=== PATIENT | female | born 2005 | race Caucasian/White ===

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

== ENCOUNTER 2023-01-27 11:40 | Emergency (ER) | payer MEDICAID, SELFPAY ==
[2023-01-27] VITALS (39 sets, daily range): BP systolic 59–126; BP diastolic 13–78; PULSE 54–111; RESP 10–25; TEMP 37.3; O2SAT 95–100
--- NOTE | 2023-01-27 11:30 | RT.EKG_ITS ---
APPROVED REPORT Exam: Resting ECG Reason for Exam: CHEST PAIN Patient Location: E HR:82 bpm ECG Measurements Heart Rate 82 AXIS NM 118 P 92 QRSd 85 QRS 25 QT 343 T 52 QTc 402 Conclusion Sinus rhythm.. V-rate 60- [address] segment or T wave abnormalities to suggest occluisve CO
--- NOTE | 2023-01-27 12:00 | DI.RAD_ITS ---
Exam(s) XR CHEST 2V PA LATERAL EXAM: XR CHEST 2V PA LATERAL CLINICAL HISTORY: chest pain TECHNIQUE: 2D digital imaging was performed. COMPARISON: CR,XR XR CHEST 2V PA LATERAL from 12/24/2022 FINDINGS: HEART: Normal size. Aorta: Not dilated. PULMONARY VASCULATURE: Normal. LUNGS: Clear. PLEURAL SPACE: No pleural effusion or pneumothorax. BONE:Unremarkable for age. IMPRESSION: No acute abnormality. DATA REPOSITORY: RADIATION DOSE DELIVERED:
--- NOTE | 2023-01-27 12:05 | ED.GENADUL_ITS ---
Discharge Plan Disposition Patient Disposition: Home Condition: Good Discharge Details Clinical Impression: Chest pain Primary Care Provider: Jerry Munoz ED Provider: Claudia Falcon Home Meds and New Rx's Prescriptions: No Action naproxen sodium 550 mg tablet 550 mg PO Q12H PRN (Reason: pain) Qty: 20 0RF levonorgestrel-ethinyl estrad [Aviane] 0.1-20 mg-mcg tablet 1 tab PO DAILY Qty: 84 4RF clindamycin phosphate 1 % gel 1 applic topical DAILY Qty: 60 2RF Rx Instructions: Apply daily tretinoin 0.025 % cream 1 applic topical QHS Qty: 20 1RF Rx Instructions: Apply nightly benzoyl peroxide [BP Wash] 5 % cleanser 1 applic topical DAILY Qty: 237 2RF Rx Instructions: Apply daily to affected areas and rinse off Discharge Instructions Instructions: Chest Pain (ED) Additional Instructions: You can take tylenol and ibuprofen over the counter at home for your pain; follow the directions on the bottle. Call your primary care doctor today to schedule an appointment to follow up on your visit here. Discuss your magnesium level at that visit. Return to the emergency department for new or worsening symptoms including new/different/worse chest pain, difficulty breathing, or if you have any other concerns. Referrals: Jerry Munoz, [facility] [facility] [facility] [Primary Care Provider] - Medical Decision Making 17yo previously health female presenting with 4 hours of constant substernal chest pain with no associated symptoms; did have N/V over the past two days which resolved yesterday evening. Vital signs and physical exam reassuring on arrival. Suspect likely reflux in the setting of recent vomiting, however given OCPs and concerning family history will further evaluate for pulmonary embolism and acute coronary syndrome. Given mylanta for symptoms. EKG NSR, appropraite intervals, no ST segment or T wave abnormalities to suggest occlusive PR. CXR independently reviewed, no pneumonia, pneumothorax, or indication Boerhaves, agree with radiology read below. Labs reviewed; CBC & CMP reassuring with no actionable abnormalities, lipase normal, Mg borderline low at 1.7 (orally replaced), d-dimer negative, troponin negative x 2. On reassessment remains nontoxic appearing with reassuring vital signs, minimal improvement with mylanta. Does have reproducible chest wall tenderness with palpation. Given IV toradol and discharged home to followup with PCP (advised to discuss Mg level at that visit); discharge instructions and return precautions were reviewed with patient who verbalized understanding. All questions were answered and she is in full agreement with the plan. Imaging Data Radiologic Study: Imaging: X-Ray Radiologist's impression: IMPRESSION: No acute findings Lab Data Lab results reviewed: Yes I reviewed the patient's lab results. Labs: Laboratory Tests Range/Units 01/27/23 01/27/23 01/27/23 11:50 11:50 11:50 WBC (4.4-10.8) 10^3/uL 7.23 RBC (3.93-5.22) 10^6/uL 4.31 Hgb (11.2-15.7) g/dL 13.1 Hct (36.0-46.0) % 37.0 MCV (80-95) fL 86 MCH (27.0-33.0) pg 30.4 MCHC (32.0-36.0) % 35.4 RDW (11.7-14.6) % 11.1 L Plt Count (130-400) 10^3/uL 212 MPV (8.0-11.0) fL 11.4 H Immature Gran % 0.3 Neutrophils % 62.2 Lymphocytes % 28.2 Monocytes % 7.3 Eosinophils % 1.4 Basophils % 0.6 Nucleated RBC % (0.0-0.3) % 0.0 Absolute Neutrophils (1.2-6.7) 10^3/uL 4.50 Absolute Lymphocytes (1.2-3.4) 10^3/uL 2.04 Absolute Monocytes (0.1-0.8) 10^3/uL 0.53 Absolute Eosinophils (0.0-0.7) 10^3/uL 0.10 Absolute Basophils (0.0-0.2) 10^3/uL 0.04 D-Dimer (<500) ng/mlFEU 272 Sodium (136-145) mmol/L 139 Potassium (3.5-5.1) mmol/L 3.6 Chloride (98-107) mmol/L 104 Carbon Dioxide (21.0-32.0) mmol/L 25.5 Anion Gap (3-11) mmol/L 9.5 BUN (7-18) mg/dL 7 Creatinine (0.55-1.02) mg/dL 0.7 Est GFR (CKD-EPI 2020) (mL/min/1.73m2) 127.69 Glucose (74-106) mg/dL 86 Calcium (8.5-10.1) mg/dL 8.7 Magnesium (1.8-2.4) mg/dL 1.7 L Total Bilirubin (0.2-1.0) mg/dL 0.5 AST (15-37) U/L 17 ALT (14-59) U/L 22 Alkaline Phosphatase (46-116) U/L 70 Troponin I (<or=60) ng/L < 50 Total Protein (6.4-8.2) g/dL 7.0 Albumin (3.4-5.0) g/dL 3.7 Lipase (16-77) U/L 52 Range/Units 01/27/23 14:50 WBC (4.4-10.8) 10^3/uL RBC (3.93-5.22) 10^6/uL Hgb (11.2-15.7) g/dL Hct (36.0-46.0) % MCV (80-95) fL MCH (27.0-33.0) pg MCHC (32.0-36.0) % RDW (11.7-14.6) % Plt Count (130-400) 10^3/uL MPV (8.0-11.0) fL Immature Gran % Neutrophils % Lymphocytes % Monocytes % Eosinophils % Basophils % Nucleated RBC % (0.0-0.3) % Absolute Neutrophils (1.2-6.7) 10^3/uL Absolute Lymphocytes (1.2-3.4) 10^3/uL Absolute Monocytes (0.1-0.8) 10^3/uL Absolute Eosinophils (0.0-0.7) 10^3/uL Absolute Basophils (0.0-0.2) 10^3/uL D-Dimer (<500) ng/mlFEU Sodium (136-145) mmol/L Potassium (3.5-5.1) mmol/L Chloride (98-107) mmol/L Carbon Dioxide (21.0-32.0) mmol/L Anion Gap (3-11) mmol/L BUN (7-18) mg/dL Creatinine (0.55-1.02) mg/dL Est GFR (CKD-EPI 2020) (mL/min/1.73m2) Glucose (74-106) mg/dL Calcium (8.5-10.1) mg/dL Magnesium (1.8-2.4) mg/dL Total Bilirubin (0.2-1.0) mg/dL AST (15-37) U/L ALT (14-59) U/L Alkaline Phosphatase (46-116) U/L Troponin I (<or=60) ng/L < 50 Total Protein (6.4-8.2) g/dL Albumin (3.4-5.0) g/dL Lipase (16-77) U/L HPI General Mode of arrival: ambulatory . Date/Time Provider Initiated Documentation: 01/27/23 11:46 . Limitations to Documentation: no limitations . Information obtained by: patient . HPI Narrative: 17yo previously health female presenting with 4 hours of constant substernal nonradiating chest pain. Present on waking at 0700 this morning when her alarm went off. No shortness of breath or pleuritic pain. For the last two days she has had nausea and vomiting, nonbloody nonbilious, resolved yesterday evening. No abdominal pain. On OCPs, no other medications. Father at age 52 of a heart attack. She is otherwise in her usual state of health with no fevers, chills, rash, dysuria, hematuria, LE edema, palpitations, presyncope, syncope, or other concerns. Related Data Home Medications Medication Instructions Recorded Confirmed benzoyl peroxide 5 % topical 1 applic topical DAILY #237 grams 05/04/22 01/27/23 cleanser (BP Wash) clindamycin phosphate 1 % topical 1 applic topical DAILY #60 grams 05/04/22 01/27/23 gel levonorgestrel-ethinyl estradiol 1 tab PO DAILY #84 tabs 05/04/22 01/27/23 0.1 mg-20 mcg tablet (Aviane) tretinoin 0.025 % topical cream 1 applic topical QHS #20 grams 05/04/22 01/27/23 naproxen sodium 550 mg tablet 550 mg PO Q12H PRN pain #20 tabs 01/11/23 01/27/23 Previous Rx's Medication Instructions Recorded benzoyl peroxide 5 % topical 1 applic topical DAILY #237 grams 05/04/22 cleanser (BP Wash) clindamycin phosphate 1 % topical 1 applic topical DAILY #60 grams 05/04/22 gel levonorgestrel-ethinyl estradiol 1 tab PO DAILY #84 tabs 05/04/22 0.1 mg-20 mcg tablet (Aviane) tretinoin 0.025 % topical cream 1 applic topical QHS #20 grams 05/04/22 naproxen sodium 550 mg tablet 550 mg PO Q12H PRN pain #20 tabs 01/11/23 Allergies Allergy/AdvReac Type Severity Reaction Status Date / Time aloe Allergy Unknown Skin Rash Verified 01/11/23 13:37 codeine AdvReac Intermediate Agitation Verified 01/11/23 13:37 General Stated Complaint: Chest Pain LAN: 3 Review of Systems Narrative: see HPI PFSH All Active Problems (Updated 01/27/23 @ 15:59 by Claudia Falcon MD) Chest pain (Acute) Frequent urinary tract infections (Acute) GERD (gastroesophageal reflux disease) (Chronic) H. pylori infection (Acute) Abdominal pain (Acute) GI consult: pending upper and lower GI series. trial of cyproheptadine Hypomagnesemia (Acute) Anxiety (Chronic) Insomnia (Acute) Family history of multiple endocrine neoplasia (MEN) syndrome (Acute 08/09/16) Medical History (Updated 01/27/23 @ 15:59 by Claudia Falcon MD) Abnormal uterine bleeding (AUB) Cellulitis of left upper extremity Dysuria History of seizure as Leg pain Lower abdominal pain Pain of left calf Family History Mother Mental disorder bipolar Depression suicide attempts Father Essential hypertension Ulcer Multiple endocrine neoplasia (MEN) syndrome Sister No problems noted. Brother No problems noted. Grandparent Heart disease Mgm and Mgf with heart problems Neoplasm Other Substance abuse Social History Smoking/Tobacco Use Status: Former Tobacco Use Smoking risk assessment performed?: Yes Alcohol Intake: never Drug use: Never Substance use type: does not use Housing: apartment Pets and animals: Yes Pets and animals: cat(s) Do you feel safe at home: Yes Do you feel safe in your relationship?: Yes Additional Social history: mom at bedside. Female Reproductive History Menstrual control method: none, pills (Aviane - sexually active with one partner - reports consistent condom use.) and condoms History History 0 Para Hx # Term Pregnancies Multiple births Hx # Pregnancies Ectopic pregnancies AB induced Hx Number of Living Children AB spontaneous Exam Narrative Exam Narrative: General: Alert, well appearing, well nourished, in no acute distress. Head: Normocephalic, atraumatic Neck: Trachea midline, Neck supple. ENT: MMM. No oropharygeal lesions or exudate. Cardiac: RRR, no murmurs appreciated Resp: No respiratory distress. CTAB. Abd: Soft, non-distended, nontender : No suprapubic tenderness. No CVA tenderness. Extremities: No deformities. No peripheral edema. Neurologic: GCS 15. Moves all extremities freely against gravity Course Vital Signs Vital signs: Vital Signs Temperature 37.3 C 01/27/23 11:43 Pulse 92 H 01/27/23 11:43 Respiratory Rate 18 01/27/23 11:43 Blood Pressure 116/67 01/27/23 11:43 Pulse Oximetry 100 01/27/23 11:43 Temperature 37.3 C 01/27/23 11:43 Temperature Source Oral 01/27/23 11:43 Pulse 92 H 01/27/23 11:43 Respiratory Rate 18 01/27/23 11:43 Respiratory Effort Normal 01/27/23 11:51 Respiratory Depth Normal 01/27/23 11:51 Respiratory Pattern Normal 01/27/23 11:51 Blood Pressure 116/67 01/27/23 11:43 Blood Pressure Position Sitting 01/27/23 11:43 Pulse Oximetry 100 01/27/23 11:43 Oxygen Delivery Method Room Air 01/27/23 11:43 Oxygen Flow Rate 0 01/27/23 11:43 Pain Level 7 01/27/23 11:43
[2023-01-27 12:12] LABS: Abs Immature Grans 0.02 10^3/uL (0.0-0.06); Absolute Basophil Count 0.04 10^3/uL (0.0-0.2); Absolute Lymphocyte Count 2.04 10^3/uL (1.2-3.4); Absolute Monocyte Count 0.53 10^3/uL (0.1-0.8); Basophils % 0.6; Eosinophils % 1.4; HGB 13.1 g/dL (11.2-15.7); Immature Grans % 0.3; Lymphocytes % 28.2; MCH 30.4 pg (27.0-33.0); MCHC 35.4 % (32.0-36.0); MCV 86 fL (80-95); MPV 11.4 fL (8.0-11.0); Monocytes % 7.3; Neutrophils % 62.2; Platelet Count 212 10^3/uL (130-400); RBC 4.31 10^6/uL (3.93-5.22); RDW 11.1 % (11.7-14.6); WBC 7.23 10^3/uL (4.4-10.8)
[2023-01-27] MEDS: Mylanta Suspension 30 ML CUP PO (12:16)
[2023-01-27 12:24] LABS: ALT 22 U/L (14-59); AST 17 U/L (15-37); Albumin 3.7 g/dL (3.4-5.0); Alkaline Phosphatase 70 U/L (46-116); Anion Gap 9.5 mmol/L (3-11); BUN 7 mg/dL (7-18); Bilirubin, Total 0.5 mg/dL (0.2-1.0); CO2 25.5 mmol/L (21.0-32.0); CREATININE 0.7 mg/dL (0.55-1.02); Calcium 8.7 mg/dL (8.5-10.1); Chloride 104 mmol/L (98-107); Estimated GFR 127.69 (mL/min/1.73m2); Glucose 86 mg/dL (74-106); Lipase 52 U/L (16-77); Magnesium 1.7 mg/dL (1.8-2.4); Potassium 3.6 mmol/L (3.5-5.1); Sodium 139 mmol/L (136-145); Troponin I < 50 ng/L (<or=60)
[2023-01-27 12:42] LABS: D-Dimer 272 ng/mlFEU (<500)
[2023-01-27] MEDS: Magnesium Gluconate 500 MG TAB PO (13:29)
[2023-01-27 15:16] LABS: Troponin I < 50 ng/L (<or=60)
--- NOTE | 2023-01-27 15:28 | DI.VRAD_ITS ---
PROCEDURE INFORMATION: Exam: XR Chest Exam date and time: 01/27/2023 3:08 PM Age: 17 years old Clinical indication: Other: Chest pain TECHNIQUE: Imaging protocol: Radiologic exam of the chest. Views: 2 views. COMPARISON: CR XR CHEST 2V PA LATERAL 12/24/2022 1:05 AM FINDINGS: Lungs: Unremarkable. No consolidation. Pleural spaces: Unremarkable. No pleural effusion. No pneumothorax. Heart/Mediastinum: Unremarkable. No cardiomegaly. Bones/joints: Unremarkable. IMPRESSION: No acute findings. Dictated and Authenticated by: Tonny Almeida MD. Ordering:MONTEZ Taylor MD
[2023-01-27] MEDS: Ketorolac 15 MG/ML VIAL IVP (16:19)
--- NOTE | 2023-01-30 09:45 | NUR.NOTE ---
Nursing Note:in chart because she wanted a return to work note
== END 2023-01-27 16:34 | disposition home or self-care (01) ==
PROVIDERS: Emergency Provider Student in an Organized Health Care Education/Training Program; PCP Nurse Practitioner Pediatrics
DX: R07.9 Chest pain, unspecified (principal); Z87.891 Personal history of nicotine dependence
CPT/HCPCS: 80053; 83690; 93005; 99284; 71046; 83735; 84484; 85025; 85379; 93010; 99283; J1885

== ENCOUNTER 2023-02-18 20:35 | Emergency (ER) | payer MEDICAID, SELFPAY ==
--- NOTE | 2023-02-18 20:30 | DI.RAD_ITS ---
Exam(s) XR HAND LT COMPLETE EXAM: XR HAND LT COMPLETE CLINICAL HISTORY: trauma. TECHNIQUE: 2D digital imaging was performed. Three views. COMPARISON: CR XR HAND LT COMPLETE from 04/27/2022 FINDINGS: BONES: No acute fracture is present. No bony destructive lesion is seen. JOINTS: No dislocation present. SOFT TISSUE: Normal. IMPRESSION: Unremarkable radiographs of the left hand. DATA REPOSITORY: RADIATION DOSE DELIVERED:
--- NOTE | 2023-02-18 20:45 | ED.GENADUL_ITS ---
Discharge Plan Disposition Patient Disposition: Home Condition: Stable Discharge Details Clinical Impression: Contusion of hand Primary Care Provider: Jerry Munoz ED Provider: Fozia Nunez Home Meds and New Rx's Prescriptions: Continued naproxen sodium 550 mg tablet 550 mg PO Q12H PRN (Reason: pain) Qty: 20 0RF levonorgestrel-ethinyl estrad [Aviane] 0.1-20 mg-mcg tablet 1 tab PO DAILY Qty: 84 4RF clindamycin phosphate 1 % gel 1 applic topical DAILY Qty: 60 2RF Patient Comments: not currently using Rx Instructions: Apply daily tretinoin 0.025 % cream 1 applic topical QHS Qty: 20 1RF Patient Comments: not currently using Rx Instructions: Apply nightly benzoyl peroxide [BP Wash] 5 % cleanser 1 applic topical DAILY Qty: 237 2RF Patient Comments: not currently using Rx Instructions: Apply daily to affected areas and rinse off Discharge Instructions Instructions: Contusion in Adults (ED) Additional Instructions: Elevate above the level of your heart to reduce swelling and throbbing You can wrap your hand with an Santiago wrap to help reduce swelling and provide support Ice to affected area 4-5 times daily for the next 2 days then can use heat or ice Use ibuprofen 400 mg 4 times daily with food for 5 days to help reduce swelling then as needed for pain can add acetaminophen 650 mg 4 times daily in between for breakthrough Your symptoms may worsen over the next 2 to 3 days but then should start slowly improving if they are not improving by 5 to 7 days please see a provider and follow-up Referrals: Jerry Munoz, [employer] [Primary Care Provider] - Medical Decision Making Isolated injury to left hand. Ice provided ibuprofen 400 mg orally given x-ray will be obtained HPI General Mode of arrival: ambulatory . Date/Time Provider Initiated Documentation: 02/18/23 20:43 . Limitations to Documentation: no limitations . Information obtained by: patient . HPI Narrative: Patient presents for evaluation of left hand pain following an injury she sustained by slamming into a car door. There was no other injury. There is no obvious deformity. No laceration or abrasion Related Data Home Medications Medication Instructions Recorded Confirmed benzoyl peroxide 5 % topical 1 applic topical DAILY #237 grams 05/04/22 01/27/23 cleanser (BP Wash) clindamycin phosphate 1 % topical 1 applic topical DAILY #60 grams 05/04/22 0 01/27/23 gel levonorgestrel-ethinyl estradiol 1 tab PO DAILY #84 tabs 05/04/22 02/18/23 0.1 mg-20 mcg tablet (Aviane) tretinoin 0.025 % topical cream 1 applic topical QHS #20 grams 05/04/22 01/27/23 naproxen sodium 550 mg tablet 550 mg PO Q12H PRN pain #20 tabs 01/11/23 02/18/23 Previous Rx's Medication Instructions Recorded benzoyl peroxide 5 % topical 1 applic topical DAILY #237 grams 05/04/22 cleanser (BP Wash) clindamycin phosphate 1 % topical 1 applic topical DAILY #60 grams 05/04/22 gel levonorgestrel-ethinyl estradiol 1 tab PO DAILY #84 tabs 05/04/22 0.1 mg-20 mcg tablet (Aviane) tretinoin 0.025 % topical cream 1 applic topical QHS #20 grams 05/04/22 naproxen sodium 550 mg tablet 550 mg PO Q12H PRN pain #20 tabs 01/11/23 Allergies Allergy/AdvReac Type Severity Reaction Status Date / Time aloe Allergy Unknown Skin Rash Verified 02/18/23 21:11 codeine AdvReac Intermediate Agitation Verified 02/18/23 21:11 General LAN: 3 Review of Systems All systems reviewed & are unremarkable except as noted in HPI and below PFSH All Active Problems (Updated 02/18/23 @ 21:24 by Fozia Nunez NP) Chest pain (Acute) Contusion of hand (Acute) Frequent urinary tract infections (Acute) GERD (gastroesophageal reflux disease) (Chronic) H. pylori infection (Acute) Abdominal pain (Acute) GI consult: pending upper and lower GI series. trial of cyproheptadine Hypomagnesemia (Acute) Anxiety (Chronic) Insomnia (Acute) Family history of multiple endocrine neoplasia (MEN) syndrome (Acute 08/09/16) Medical History (Updated 02/18/23 @ 21:24 by Fozia Nunez NP) Abnormal uterine bleeding (AUB) Cellulitis of left upper extremity Dysuria History of seizure as Leg pain Lower abdominal pain Pain of left calf Family History Mother Mental disorder bipolar Depression suicide attempts Father Essential hypertension Ulcer Multiple endocrine neoplasia (MEN) syndrome Sister No problems noted. Brother No problems noted. Grandparent Heart disease Mgm and Mgf with heart problems Neoplasm Other Substance abuse Social History Smoking/Tobacco Use Status: Former Tobacco Use Smoking risk assessment performed?: Yes Alcohol Intake: never Drug use: Never Substance use type: does not use Housing: apartment Pets and animals: Yes Pets and animals: cat(s) Do you feel safe at home: Yes Do you feel safe in your relationship?: Yes Additional Social history: mom at bedside. Female Reproductive History Menstrual control method: none, pills (Aviane - sexually active with one partner - reports consistent condom use.) and condoms History History 0 Para Hx # Term Pregnancies Multiple births Hx # Pregnancies Ectopic pregnancies AB induced Hx Number of Living Children AB spontaneous Exam Const General: cooperative, healthy appearing, comfortable and acute distress mild Nutritional Appearance: thin HENMT Head: normal to inspection, normocephalic and atraumatic Chest Chest: normal inspection of the chest Resp Effort & Inspection: normal respiratory effort Cardio Rate: regular rate Rhythm: regular rhythm Extrem Right upper extremity: hand Details: tenderness and swelling; no abrasions, no lacerations and no ecchymosis Psych Appearance: well kempt Mental Status: mental status grossly normal Speech and Movement: speech and movement normal Mood: congruent mood Affect: normal affect Attitude: cooperative Thought Process: normal
[2023-02-18 21:04] VITALS: BP 115/74; PULSE 88; RESP 14; TEMP 37.2; O2SAT 98
[2023-02-18] MEDS: Ibuprofen 400 MG TAB PO (21:10)
--- NOTE | 2023-02-18 21:19 | DI.VRAD_ITS ---
PROCEDURE INFORMATION: Exam: XR Left Hand Exam date and time: 02/18/2023 9:11 PM Age: 17 years old Clinical indication: Injury or trauma; Other: Hand shut in door; Blunt trauma (contusions or hematomas); Left TECHNIQUE: Imaging protocol: Radiologic exam of the left hand. Views: 3 or more views. COMPARISON: CR XR HAND LT COMPLETE 04/27/2022 1:30 PM FINDINGS: Bones/joints: Bone mineralization is age-appropriate. There is no evidence of fracture. No evidence of dislocation. The joint spaces are adequately preserved; no significant degenerative narrowing and no bony erosion seen. Soft tissues: No radiopaque foreign body present. There is mild soft tissue swelling present. IMPRESSION: 1. No acute osseous abnormality. 2. There is mild soft tissue swelling present. Dictated and Authenticated by: Geoff Chauhan MD. Ordering:NATHAN Marcelo MD
[2023-02-18 21:38] VITALS: BP 112/70; PULSE 84; RESP 14; O2SAT 98
== END 2023-02-18 21:40 | disposition home or self-care (01) ==
PROVIDERS: Emergency Provider Nurse Practitioner Acute Care; PCP Nurse Practitioner Pediatrics
DX: W23.0XXA Caught, crushed, jammed, or pinched between moving objects, initial encounter; S60.221A Contusion of right hand, initial encounter
CPT/HCPCS: 99282; 73130; 99283

== ENCOUNTER 2023-04-13 21:32 | Outpatient (REF) | payer MEDICAID, SELFPAY | END 2023-04-13 21:33 | disposition home or self-care (01) | LOC: LBN 21:32 | PROVIDERS: PCP Nurse Practitioner Pediatrics; Visit Provider Physician Assistant | DX: J02.9 Acute pharyngitis, unspecified (principal) | CPT/HCPCS: 87070 ==

== ENCOUNTER 2023-07-05 06:47 | Emergency (ER) | payer MEDICAID, SELFPAY ==
--- NOTE | 2023-07-05 | DI.RAD_ITS ---
Exam(s) XR CHEST 2V PA LATERAL EXAM: XR CHEST 2V PA LATERAL CLINICAL HISTORY: sob. TECHNIQUE: 2D digital imaging was performed. COMPARISON: CR,XR XR CHEST 2V PA LATERAL from 01/27/2023 FINDINGS: 2 views: Heart size is normal. The mediastinum is not widened. Lungs are clear. No infiltrates nor pleural effusions. IMPRESSION: No acute pulmonary findings. DATA REPOSITORY: RADIATION DOSE DELIVERED:
--- NOTE | 2023-07-05 09:00 | RT.EKG_ITS ---
APPROVED REPORT Exam: Resting ECG Reason for Exam: SOB Patient Location: E HR:66 bpm ECG Measurements Heart Rate 66 AXIS NH 144 P 49 QRSd 88 QRS 57 QT 381 T 53 QTc 399 Conclusion Age and gender not entered, assume 48 yo male for purpose of ECG interpretation Sinus rhythm...normal P axis, V-rate 60- 99
[2023-07-05] MEDS: Lidocaine 5% Patch 1 PATCH TP (09:04)
[2023-07-05 11:11] LABS: Anion Gap 6.3 mmol/L (3-11); BUN 7 mg/dL (7-18); CO2 25.7 mmol/L (21.0-32.0); CREATININE 0.6 mg/dL (0.55-1.02); Calcium 8.9 mg/dL (8.5-10.1); Chloride 108 mmol/L (98-107); Glucose 93 mg/dL (74-106); Lipase 53 U/L (16-77); Magnesium 1.9 mg/dL (1.8-2.4); Potassium 3.7 mmol/L (3.5-5.1); Sodium 140 mmol/L (136-145); Troponin I < 50 ng/L (< or =60)
[2023-07-05 11:13] LABS: D-Dimer 187 ng/mlFEU (<500)
[2023-07-05 11:14] LABS: Absolute Basophil Count 0.03 10^3/uL (0.0-0.2); Absolute Eosinophil Count 0.21 10^3/uL (0.0-0.7); Absolute Lymphocyte Count 1.68 10^3/uL (1.2-3.4); Absolute Monocyte Count 0.44 10^3/uL (0.1-0.8); Absolute Neutrophil Count 3.53 10^3/uL (1.2-6.7); Basophils % 0.5; Eosinophils % 3.6; HCT 36.4 % (36.0-46.0); HGB 12.9 g/dL (11.2-15.7); Immature Grans % 0.2; Lymphocytes % 28.5; MCH 30.8 pg (27.0-33.0); MCHC 35.4 % (32.0-36.0); MCV 87 fL (80-95); MPV 11.2 fL (8.0-11.0); Monocytes % 7.5; Neutrophils % 59.7; Platelet Count 222 10^3/uL (130-400); RBC 4.19 10^6/uL (3.93-5.22); RDW 11.4 % (11.7-14.6)
[2023-07-05 11:15] LABS: Abs Immature Grans 0.01 10^3/uL (0.0-0.06)
== END 2023-07-05 09:09 | disposition home or self-care (01) ==
PROVIDERS: Emergency Provider Emergency Medicine; PCP Nurse Practitioner Pediatrics
DX: R07.9 Chest pain, unspecified (principal); F17.290 Nicotine dependence, other tobacco product, uncomplicated
CPT/HCPCS: 80048; 83690; 93005; 99285; 71046; 83735; 84484; 85025; 85379; 93010; 99284

== ENCOUNTER 2023-07-21 18:20 | Emergency (ER) | payer MEDICAID, SELFPAY ==
[2023-07-21 18:33] VITALS: BP 124/97; PULSE 121; RESP 18; TEMP 37.1; O2SAT 97
[2023-07-21 18:53] LABS: Bilirubin Negative (Negative); Blood Negative (Negative); Clarity Clear (Clear); Glucose Negative (Negative); Ketones Negative (Negative); Leukocyte Esterase Negative (Negative); Nitrite Negative (Negative); Urobilinogen 0.2 mg/dL (Up to 0.2)
--- NOTE | 2023-07-21 18:53 | W.ED.GENAD ---
HPI General Date/Time Provider Initiated Documentation: 07/21/23 18:21. HPI Narrative: MDM This is an uncomfortable appearing tachycardic but normothermic and normotensive 18-year-old female with mild left-sided hydronephrosis concerning for the possibility of ureterolithiasis for which she will undergo dry CT scan. Certainly given flank pain and urinary symptoms she certainly could have pyelonephritis. No diarrhea to suggest diverticulitis. Based on mild hydronephrosis my suspicion for ovarian torsion is lower so we will defer pelvic ultrasound at this point. No pain out of proportion to suggest necrotizing soft tissue infection. No right lower quadrant tenderness to suggest appendicitis. No dysuria nor frequency so my suspicion is lower for urinary tract infection however given reportedly turbid and malodorous urine UTI remains in the differential. Patient the patient's age and lack of vascular risk factors my suspicion for ruptured AAA is low. No cough so doubt referred pain from pneumonia. Not short of breath to suggest PE. No falls to suggest splenic rupture. Not recently to suggest increased risk for splenic arterial aneurysm. Given no abnormal vaginal discharge my suspicion for sexually transmitted infection is low. Will treat pain with ketorolac and nausea with ondansetron. 7:01 PM [id number] urine negative. Urinalysis nitrite leukoesterase negative not consistent with UTI. 7:56 PM CBC lacks anemia thrombocytopenia and leukocytosis. Comprehensive metabolic panel with no NAINA no acute electrolyte abnormalities. 8:38 PM No obvious ureterolithiasis on my preliminary interpretation given concern for pyelonephritis will treat with 1 g of ceftriaxone in the emergency department and discharged on cefpodoxime 200 mg twice daily for 10 days. 9:42 PM Patient has been accepted by Dr. Womack [place] [facility] [place] Fortunately emergency department nurse Guadalupe, who is also an hazardous waste material technician, will be able to perform the patient's ultrasound locally in 20 minutes which is certainly more expeditious than [place] [facility] [place] As result we will the patient in the emergency department to maintain IV access. Pain is improved. 10:22 PM I spoke with hazardous waste material technician MRI who reported that the patient had no signs of ovarian torsion with good flow to bilateral ovaries. She did note that she found a moderate amount of free fluid which certainly could speak to a recently ruptured ovarian cyst but the patient had no large cysts. Will await radiology final read. 11:08 PM Formal radiology preliminary read of patient's ultrasound showed blood flow to ovaries bilaterally moderate amount of free fluid. There is a right ovarian cyst for which radiology advises outpatient follow-up in 6 weeks. Will advise patient of this incidental finding and discharged with strict return indications. Chronic conditions affecting the care of the patient: N/A History obtained from an outside historian: Patient's mother External record review: N/A Medications: Ketorolac ondansetron Social determinants of health affecting disposition: N/A Management discussed with: Emergency medicine [place] [facility] [place] Treatment/interventions considered: Tertiary care transfer for ultrasound but deferred Response to therapies provided: Improved pain following ketorolac HPI This is a previously healthy 18-year-old female up-to-date on immunizations and on only oral outpatient contraceptives arriving to the emergency department via private vehicle with her mother in the setting of left flank pain and cloudy urine which began this morning acutely at 11 AM. She says that she has pain in her left lower quadrant that radiates into her left flank. She has never had similar symptoms in the past. She has had difficulty urinating and notes a cloudy malodorous urine. She reports her symptoms feel different from prior episodes of urinary tract infections. She had no abnormal vaginal discharge. She denies fevers although she does feel sweaty. She took some acetaminophen this morning which did not improve her symptoms. She has not taken any falls.Patient denied abnormal vaginal discharge to me although she did complain of vaginal discharge from triage. She is sexually active but uses oral contraceptives and condoms. She has never had a sexually transmitted infection. Exam General: Uncomfortable-appearing in no acute distress speaking in complete sentences. Head: Normocephalic, atraumatic. Eye: Extraocular eye movements intact. No conjunctival injection. No scleral icterus. Ear, nose, mouth, throat: Grossly normal inspection. Normal voice, handling secretions normally. Neck: Trachea midline. Cardiovascular: Well-perfused distal extremities. Regular rate and rhythm Respiratory: Nonlabored respiration. Clear lungs bilaterally Gastrointestinal: Nondistended abdomen. Soft nontender no rebound no guarding. Musculoskeletal: No edema. Moving all 4 extremities spontaneously. Skin: Normal for age and race, grossly normal temperature and turgor. No acute rash. Neurologic: Alert and appropriate, no apparent acute deficits. Psychiatric: Mood and manner are appropriate. Grooming and personal hygiene are appropriate. Related Data Home Medications Medication Instructions Recorded Confirmed levonorgestrel-ethinyl estradiol 1 tab PO DAILY #84 tabs 05/04/22 07/21/23 0.1 mg-20 mcg tablet (Aviane) cefpodoxime 200 mg tablet 200 mg PO Q12H #20 tabs 07/21/23 ondansetron 4 mg disintegrating 4 mg PO BID 5 days #10 tabs 07/21/23 tablet Previous Rx's Medication Instructions Recorded levonorgestrel-ethinyl estradiol 1 tab PO DAILY #84 tabs 05/04/22 0.1 mg-20 mcg tablet (Aviane) cefpodoxime 200 mg tablet 200 mg PO Q12H #20 tabs 07/21/23 ondansetron 4 mg disintegrating 4 mg PO BID 5 days #10 tabs 07/21/23 tablet Allergies Allergy/AdvReac Type Severity Reaction Status Date / Time aloe Allergy Unknown Skin Rash Verified 07/21/23 18:33 codeine AdvReac Intermediate Agitation Verified 07/21/23 18:33 General Stated Complaint: Abd Prob LAN: 3 Course Vital Signs Vital signs: Vital Signs Temperature 37.1 C 07/21/23 18:33 Pulse 121 H 07/21/23 18:33 Respiratory Rate 18 07/21/23 18:33 Blood Pressure 124/97 H 07/21/23 18:33 Pulse Oximetry 97 07/21/23 18:33 Temperature 37.1 C 07/21/23 18:33 Temperature Source Skin 07/21/23 18:33 Pulse 121 H 07/21/23 18:33 Respiratory Rate 18 07/21/23 18:33 Respiratory Effort Normal, Non-Labored 07/21/23 18:36 Blood Pressure 124/97 H 07/21/23 18:33 Pulse Oximetry 97 07/21/23 18:33 Pain Level 6 07/21/23 18:33 Lab/Test Results Lab/Test Results: POC- Test(urine) Negative Medical Decision Making Quality:SDOH Health Related Social Needs: No Data to Display PFSH All Active Problems (Updated 07/21/23 @ 23:10 by Rasheed Jackson MD) Cyst of right ovary (Acute) Free fluid in pelvis (Acute) Pyelonephritis (Acute) Chest pain (Acute) Frequent urinary tract infections (Acute) GERD (gastroesophageal reflux disease) (Chronic) H. pylori infection (Acute) Abdominal pain (Acute) GI consult: pending upper and lower GI series. trial of cyproheptadine Hypomagnesemia (Acute) Anxiety (Chronic) Insomnia (Acute) Family history of multiple endocrine neoplasia (MEN) syndrome (Acute 08/09/16) Medical History Pain of left calf Leg pain Lower abdominal pain Dysuria Abnormal uterine bleeding (AUB) Cellulitis of left upper extremity History of seizure as Family History Mother Mental disorder bipolar Depression suicide attempts Father Essential hypertension Ulcer Multiple endocrine neoplasia (MEN) syndrome Sister No problems noted. Brother No problems noted. Grandparent Heart disease Mgm and Mgf with heart problems Neoplasm Other Substance abuse Social History Smoking/Tobacco Use Status: Former Tobacco Use Smoking risk assessment performed?: Yes Alcohol Intake: never Drug use: Never Substance use type: does not use Housing: apartment Pets and animals: Yes Pets and animals: cat(s) Do you feel safe at home: Yes Do you feel safe in your relationship?: Yes Additional Social history: mom at bedside. Female Reproductive History Menstrual control method: none, pills (Aviane - sexually active with one partner - reports consistent condom use.) and condoms History History 0 Para Hx # Term Pregnancies Multiple births Hx # Pregnancies Ectopic pregnancies AB induced Hx Number of Living Children AB spontaneous Discharge Plan Disposition Patient Disposition: Home Discharge Details Clinical Impression: Pyelonephritis, Free fluid in pelvis, Cyst of right ovary Primary Care Provider: Jerry Munoz ED Provider: Rasheed Jackson Brule Meds and New Rx's Prescriptions: New cefpodoxime 200 mg tablet 200 mg PO Q12H Qty: 20 0RF Rx Instructions: must administer with a meal/food ondansetron 4 mg tablet,disintegrating 4 mg PO BID 5 Days Qty: 10 0RF Continued levonorgestrel-ethinyl estrad [Aviane] 0.1-20 mg-mcg tablet 1 tab PO DAILY Qty: 84 4RF Discharge Instructions Instructions: Urinary Tract Infection in Women (ED) Additional Instructions: You are seen in the emergency department for your flank pain. Your history and physical was consistent with a urinary tract infection for which you are receiving antibiotics which you should take as directed starting on 07/22/2023. You are also receiving a prescription for nausea medicines which you should take as needed. Your CAT scan showed concerns for the possibility of some free fluid in your lower abdomen along with an abnormal displacement of your uterus. Your ultrasound showed no sign of ovarian torsion however you did have a small cyst on your right ovary for which radiology recommended a repeat ultrasound in the next 6 weeks. Please return to the emergency department if you cannot eat or drink as result of nausea or vomiting or if you have any other concerns. Otherwise please follow-up with your primary care provider next week. For your pain please take medications as follows: 1. Take acetaminophen (Tylenol), 1,000 mg (two 500 mg tabs) every 6 hours [2. Take ibuprofen (Advil), 400 mg every 6 hours.] POCUS Exam (ED) Limited Retroperitoneal(Renal)Exam DATE OF EXAM: 07/21/23 TIME OF EXAM: 19:42 PROVIDER THAT PERFORMED THE STUDY: Rasheed Jackson IS THIS A REPEAT EXAM DURING THIS ENCOUNTER: No REASON FOR EXAM: Flank pain/left side VISUALIZED STRUCTURES: Left kidney and Right kidney PERTINENT FINDINGS/IMPRESSION: Hydronephrosis present left side DIFFERENTIAL DIAGNOSES: Mild left hydronephrosis. Decompressed bladder not visible Exam complete
--- NOTE | 2023-07-21 19:15 | DI.CT_ITS ---
Exam(s) CT ABDOMEN PELVIS WO EXAM: CT ABDOMEN PELVIS WO CLINICAL HISTORY: Left flank pain family history of stones. TECHNIQUE: Imaging Protocol: Axial computed tomography images with coronal and sagittal reformatted images were created and reviewed. COMPARISON: CT CT ABDOMEN PELVIS W from 02/09/2022 FINDINGS: ABDOMEN: Lung Bases: Normal where visualized. Liver: Normal density. No measurable mass. Gallbladder and biliary tract: No radiodense calculus or biliary ductal dilation. Pancreas: Normal density, no abnormal calcifications or inflammatory process. Spleen: Normal. Kidneys: Normal size, contour and axis.No radiodense stones or obstructive uropathy. No masses seen. Adrenal glands: No mass is seen. Lymph nodes: Within normal limits. Abdominal Aorta: Abdominal portion non-dilated. PELVIS: Bladder:There is mild diffuse thickening of the wall of the urinary bladder. Bowel: No obstruction or bowel wall thickening. Appendix is unremarkable. Peritoneal cavity: There is a trace amount of free fluid in the pelvis which is likely physiologic. No free air. Reproductive organs: Unremarkable as visualized. Bones: Within normal limits. Soft Tissues: Within normal limits. IMPRESSION: 1. No evidence of nephrolithiasis or hydronephrosis. 2. Thickening of the wall of the urinary bladder. This may be due to underdistention. Cystitis shama ot be excluded. Please correlate clinically. RADIATION DOSE DELIVERED: 618.29mGy.cm Total DLP DATA REPOSITORY: All CT scans at this facility are submitted to the National Radiology Data Registry (NRDR) Dose Index Registry (DIR) with the [employer] (ACR). RADIATION OPTIMIZATION: All CT scans at this facility use at least one of these dose optimization te chniques: automated exposure control; mA and/or kV adjustment per patient size (includes targeted exa ms where dose is matched to clinical indication); or iterative reconstruction.
[2023-07-21 19:51] LABS: Abs Immature Grans 0.04 10^3/uL (0.0-0.06); Absolute Basophil Count 0.07 10^3/uL (0.0-0.2); Absolute Eosinophil Count 0.24 10^3/uL (0.0-0.7); Absolute Lymphocyte Count 2.75 10^3/uL (1.2-3.4); Absolute Monocyte Count 0.77 10^3/uL (0.1-0.8); Absolute Neutrophil Count 6.43 10^3/uL (1.2-6.7); Basophils % 0.7; Eosinophils % 2.3; HGB 13.5 g/dL (11.2-15.7); Immature Grans % 0.4; Lymphocytes % 26.7; MCHC 35.5 % (32.0-36.0); MCV 84 fL (80-95); MPV 11.1 fL (8.0-11.0); Monocytes % 7.5; Neutrophils % 62.4; Platelet Count 224 10^3/uL (130-400); RDW-SD 33.9 fL
[2023-07-21] MEDS: Normal Saline 1,000 ML 1000 ML IV (20:03)
[2023-07-21] MEDS: Ketorolac 15 MG/ML VIAL IVP (20:03)
[2023-07-21] MEDS: Ondansetron 4 MG/2 ML VIAL IVP (20:03)
[2023-07-21 20:07] LABS: ALT 23 U/L (14-59); AST 17 U/L (15-37); Albumin 3.7 g/dL (3.4-5.0); Alkaline Phosphatase 72 U/L (46-116); Anion Gap 7.7 mmol/L (3-11); BUN 11 mg/dL (7-18); Bilirubin, Total 0.6 mg/dL (0.2-1.0); CO2 27.3 mmol/L (21.0-32.0); CREATININE 0.6 mg/dL (0.55-1.02); Calcium 9.4 mg/dL (8.5-10.1); Chloride 104 mmol/L (98-107); Glucose 85 mg/dL (74-106); Potassium 3.5 mmol/L (3.5-5.1); Sodium 139 mmol/L (136-145)
[2023-07-21 20:50] VITALS: BP 112/46; PULSE 65; RESP 16; TEMP 36.7; O2SAT 99
--- NOTE | 2023-07-21 20:56 | DI.VRAD_ITS ---
PROCEDURE INFORMATION: Exam: CT Abdomen And Pelvis Without Contrast Exam date and time: 07/21/2023 7:49 PM Age: 18 years old Clinical indication: Abdominal pain; Left; Patient HX: L flank pain, family HX of stones TECHNIQUE: Imaging protocol: Computed tomography of the abdomen and pelvis without contrast. COMPARISON: CT ABDOMEN PELVIS W 02/09/2022 1:52 PM FINDINGS: Liver: Normal. No mass. Gallbladder and bile ducts: Normal. No calcified stones. No ductal dilation. Pancreas: Normal. No ductal dilation. Spleen: Normal. No splenomegaly. Adrenal glands: Normal. No mass. Kidneys and ureters: Evaluation for pyelonephritis is limited secondary to the lack of IV contrast.. No hydronephrosis. No renal or ureteral calculi are seen. Stomach and bowel: No obstruction. Appendix: There is some hyperdensity within a normal caliber appendix. This can be caused by an appendicolith which could place the patient at increased risk for appendicitis in the future. Intraperitoneal space: There is a small to moderate amount of free fluid in the pelvis. No free air. Vasculature: Unremarkable. No abdominal aortic aneurysm. Lymph nodes: Unremarkable. No enlarged lymph nodes. Urinary bladder: Urinary bladder wall thickening. This is concerning for a UTI. Clinical correlation recommended. Reproductive: The uterus is displaced to the left, similar to prior examination. This can be seen with endometriosis or scar tissue which could cause left lower quadrant pain. Clinical correlation recommended. Bones/joints: Unremarkable. No acute fracture. Soft tissues: Unremarkable. IMPRESSION: 1. Urinary bladder wall thickening. This is concerning for a UTI. Clinical correlation recommended. Evaluation for pyelonephritis is limited secondary to the lack of IV contrast. No hydronephrosis. No renal or ureteral calculi seen. 2.The uterus is displaced to the left, similar to prior examination. This can be seen with endometriosis or scar tissue which could cause left lower quadrant pain. Clinical correlation recommended. There is also a small to moderate amount of free fluid in the pelvis. If there is a concern for a gynecologic source for the patient's pain, ultrasound is recommended. 3. Other findings/details as above. Dictated and Authenticated by: Claudia Nava MD. Ordering:SANTOS Iqbal MD
--- NOTE | 2023-07-21 21:13 | DI.US_ITS ---
Exam(s) US PELVIS TRANSVAGINAL EXAM: US PELVIS TRANSVAGINAL CLINICAL HISTORY: Rule out torsion left lower quadrant pain. TECHNIQUE: Transabdominal and transvaginal pelvic ultrasound was performed using standard protocol. COMPARISON: US US PELVIS TRANSVAGINAL from 02/09/[address] ABDOMEN PELVIS WO from 07/21/2023 FINDINGS: UTERUS: Position: Anteverted. Size: 6.6 long by 3.7 AP by 5.4 transverse cm Endometrium: 1 cm. Normal for patient's menstrual status. Myometrium: Unremarkable. Cervix: Unremarkable. OVARIES: Right: 2.6 x 2.6 x 1.7 cm Cyst or mass: No suspicious cystic or solid masses. Left: 2.5 x 1.2 x 2 cm Cyst or mass: No suspicious cystic or solid masses. DOPPLER: Color: Symmetric and uniform flow to both ovaries. CUL-DE-SAC: Free fluid: There is a small to moderate amount of free fluid in the cul-de-sac. Other: None. IMPRESSION: 1. Normal-appearing uterus with endometrial stripe within normal limits. 2. Unremarkable bilateral ovaries. The ovaries displayed a normal blood flow bilaterally. 3. Moderate amount of free fluid in the cul-de-sac. DATA REPOSITORY:
[2023-07-21] MEDS: cefTRIAXone 1 GM/50 ML BAG IVPB (21:45)
--- NOTE | 2023-07-21 22:59 | DI.VRAD_ITS ---
PROCEDURE INFORMATION: Exam: US Pelvis Complete, Transabdominal and US Pelvis, Transvaginal and US Duplex Artery and Vein, Ovaries, Complete Exam date and time: 07/21/2023 9:56 PM Age: 18 years old Clinical indication: Pelvic pain and other: Llq pain; R/O torsion LABS AND CLINICAL REPORTS: Last menstrual period start date: 06/25/2023 TECHNIQUE: Imaging protocol: Real-time complete transabdominal and transvaginal pelvic ultrasound with image documentation. Transvaginal imaging was used for better evaluation of the endometrium, adnexa, and/or cervix. Real-time duplex ultrasound scan of the arterial and venous flow of the ovaries with B-mode, color Doppler flow and spectral waveform analysis. Duplex exam was performed to evaluate for torsion and other vascular conditions. COMPARISON: US PELVIS TRANSVAGINAL 02/09/2022 3:21 PM FINDINGS: Uterus: Uterus measures 6.6 cm x 3.7 cm x 5.4 cm. Endometrial stripe measures 10 mm. Right ovary/adnexa: Right ovary measures 2.6 cm x 2.6 cm x 1.7 cm. Follicles are noted in the right ovary. Blood flow is identified. Arterial and venous waveforms were obtained. Image timed 10:08:29 PM demonstrates a small cystic structure in the right ovary measuring 1 cm which has some internal echogenicity. This does not fulfill the criteria for a simple cyst. Short-term follow-up in 6 weeks recommended. Left ovary/adnexa: Left ovary measures 2.5 cm x 1.2 cm x 2 cm. Blood flow is identified in the left ovary. Follicles are noted. Arterial and venous waveforms were obtained. Intraperitoneal space: There is a moderate amount of free fluid in the cul-de-sac. Urinary bladder: Transabdominally, there is urinary bladder wall prominence. This can be seen with infection or underdistention. IMPRESSION: 1. Blood flow to the ovaries bilaterally. 2. Moderate amount of free fluid in the cul-de-sac. 3. Transabdominally, there is urinary bladder wall prominence. This can be seen with infection or underdistention. 4. Small cystic structure in the right ovary with some internal echogenicity. This does not fulfill the criteria for a simple cyst. Short-term follow-up in 6 weeks is recommended. Other findings/details as above. Dictated and Authenticated by: Claudia Nava MD. Ordering:SANTOS Iqbal MD
== END 2023-07-21 23:28 | disposition home or self-care (01) ==
PROVIDERS: Emergency Provider Emergency Medicine; PCP Nurse Practitioner Pediatrics
DX: R10.32 Left lower quadrant pain (principal); N10 Acute pyelonephritis; N83.201 Unspecified ovarian cyst, right side; Z87.891 Personal history of nicotine dependence
CPT/HCPCS: 76775; 80053; 81025; 96361; 96365; 96375; 99284; 74176; 76830; 76856; 81003; 85025; J0696; J1885; J2405

== ENCOUNTER 2023-08-28 11:22 | Outpatient (CLI) | payer MEDICAID, SELFPAY ==
[2023-08-28 11:43] LABS: HCG Quant, Pregnancy < 1 mIU/mL (1-3)
== END 2023-08-28 11:23 | disposition home or self-care (01) ==
LOC: LBO 11:22
PROVIDERS: Advanced Practice Midwife; Visit Provider Physical Medicine & Rehabilitation
DX: N92.6 Irregular menstruation, unspecified (principal)
CPT/HCPCS: 36415; 86850; 86900; 86901; 84702

== ENCOUNTER 2024-03-06 15:35 | Outpatient (CLI) | payer MEDICAID, SELFPAY ==
[2024-03-06 16:54] LABS: HCG Quant, Pregnancy 1145 mIU/mL (1-3)
== END 2024-03-06 15:36 | disposition home or self-care (01) ==
LOC: LBO 15:36
PROVIDERS: PCP Nurse Practitioner Family; Visit Provider Obstetrics & Gynecology
DX: O36.80X0 Pregnancy with inconclusive fetal viability, not applicable or unspecified (principal); Z34.91 Encounter for supervision of normal pregnancy, unspecified, first trimester
CPT/HCPCS: 36415; 84702

== ENCOUNTER 2024-03-06 15:36 | Outpatient (CLI) | payer MEDICAID, SELFPAY ==
--- NOTE | 2024-03-06 14:45 | DI.US_ITS ---
Exam(s) US OB 1ST TRIMESTER EXAM: US OB 1ST TRIMESTER CLINICAL HISTORY: location O36.80X0 WET READ. COMPARISON: No exams were available for comparison TECHNIQUE: Transabdominal Transvaginal first trimester obstetrical ultrasound performed. FINDINGS: Sonographic images demonstrate a single intrauterine gestation. A yolk sac and pole are seen. Sonographically assessed gestational age based upon crown-rump length of cm is: Estimated date of delivery based on this ultrasound is: Estimated date of delivery based upon LMP: Unknown. heart rate motion is Dopplered at: bpm. No free fluid identified. Both ovaries appear sonographically normal. Pelvic Measurments Uterus: 8.0 x 3.9 x 5.4 cm Rt Ovary: 3.1 x 1.6 x 2.7 cm Lt Ovary: 2.3 x 2.5 x 2.1 cm. Corpus luteum cyst. Biometry Gest Sac: Tiny gestational sac measuring 2.6 millimeters out of range for dating parameters No pole or yolk sac are visible at this time. IMPRESSION: tiny gestational sac within endometrium. No evidence of ectopic . DATA REPOSITORY:
== END 2024-03-06 15:56 ==
LOC: DI 15:36
PROVIDERS: PCP Nurse Practitioner Family; Visit Provider Obstetrics & Gynecology
DX: O36.80X0 Pregnancy with inconclusive fetal viability, not applicable or unspecified (principal); Z3A.01 Less than 8 weeks gestation of pregnancy
CPT/HCPCS: 76801

== ENCOUNTER 2024-03-10 04:46 | Outpatient (CLI) | payer MEDICAID, SELFPAY ==
[2024-03-10 16:24] LABS: HCG Quant, Pregnancy 4339 mIU/mL (1-3)
== END 2024-03-10 04:47 | disposition home or self-care (01) ==
LOC: LBO 04:46
PROVIDERS: PCP Nurse Practitioner Family; Visit Provider Obstetrics & Gynecology
DX: O36.80X0 Pregnancy with inconclusive fetal viability, not applicable or unspecified (principal); Z34.91 Encounter for supervision of normal pregnancy, unspecified, first trimester
CPT/HCPCS: 36415; 84702

== ENCOUNTER 2024-05-05 02:59 | Outpatient (CLI) | payer MEDICAID, SELFPAY ==
[2024-05-05 16:37] LABS: Panorama Kit Sent via Fed Ex
[2024-05-05 16:39] LABS: Abs Immature Grans 0.03 10^3/uL (0.0-0.06); Absolute Eosinophil Count 0.25 10^3/uL (0.0-0.7); Absolute Lymphocyte Count 2.03 10^3/uL (1.2-3.4); Absolute Monocyte Count 0.58 10^3/uL (0.1-0.8); Absolute Neutrophil Count 8.27 10^3/uL (1.2-6.7); Basophils % 0.4 %; Eosinophils % 2.2 %; HGB 12.7 g/dL (11.2-15.7); Immature Grans % 0.3 %; Lymphocytes % 18.1 %; MCH 30.6 pg (27.0-33.0); MCHC 35.3 % (32.0-36.0); MCV 87 fL (80-95); MPV 11.2 fL (8.0-11.0); Monocytes % 5.2 %; Neutrophils % 73.8 %; Platelet Count 215 10^3/uL (130-400); RBC 4.15 10^6/uL (3.93-5.22); RDW 11.8 % (11.7-14.6); RDW-SD 37.4 fL; WBC 11.21 10^3/uL (4.4-10.8)
[2024-05-05 16:42] LABS: Absolute Basophil Count 0.04 10^3/uL (0.0-0.2)
[2024-05-05 17:14] LABS: ALT 27 U/L (14-59); AST 19 U/L (15-37); Albumin 3.1 g/dL (3.4-5.0); Alkaline Phosphatase 72 U/L (46-116); BUN 6 mg/dL (7-18); Bilirubin, Total 0.25 mg/dL (0.2-1.0); CREATININE 0.5 mg/dL (0.55-1.02); Calcium 8.9 mg/dL (8.5-10.1); Chloride 105 mmol/L (98-107); Estimated GFR 137.62 (mL/min/1.73m2); Glucose 83 mg/dL (74-106); Potassium 3.6 mmol/L (3.5-5.1); Sodium 140 mmol/L (136-145)
[2024-05-06 22:44] LABS: Hepatitis B Surface Ag Negative (Negative)
[2024-05-06 23:14] LABS: Hepatitis C Ab w Rflx HCV PCR Negative (Negative)
[2024-05-06 23:19] LABS: HIV-1/2 Ag & Ab Screen Negative (Negative)
[2024-05-07 11:43] LABS: Varicella IgG Antibody Positive (See Note)
[2024-05-07 11:46] LABS: Rubella IgG Ab (UVM) Positive (See Note)
[2024-05-08 21:49] LABS: Syphilis IgG w/Reflex Nonreactive (Nonreactive)
[2024-05-27 14:37] LABS: Result Summary NEGATIVE; Specimen WB Whole Blood
== END 2024-05-05 03:00 | disposition home or self-care (01) ==
LOC: LBO 03:00
PROVIDERS: Advanced Practice Midwife; PCP Nurse Practitioner Family; Visit Provider Advanced Practice Midwife
DX: Z34.91 Encounter for supervision of normal pregnancy, unspecified, first trimester; E84.9 Cystic fibrosis, unspecified
CPT/HCPCS: 36415; 80053; 81220; 81222; 86787; 86803; 86850; 86900; 86901; 87340; 87389; 85025; 86762; 86780; 87086

== ENCOUNTER 2024-05-05 15:22 | Outpatient (REF) | payer MEDICAID, SELFPAY ==
[2024-05-07 13:37] LABS: Chlamydia Result Negative (Negative); GC Result Negative (Negative)
== END 2024-05-05 15:23 | disposition home or self-care (01) ==
LOC: LBN 15:22
PROVIDERS: PCP Nurse Practitioner Family; Visit Provider Advanced Practice Midwife
DX: Z34.91 Encounter for supervision of normal pregnancy, unspecified, first trimester (principal); Z3A.12 12 weeks gestation of pregnancy
CPT/HCPCS: 87077; 87491; 87591; 87086; 87186

== ENCOUNTER 2024-06-02 13:45 | Outpatient (CLI) | payer MEDICAID, SELFPAY ==
[2024-06-04 13:56] LABS: AFP 31.1 ng/mL; GA used in risk estimate Scan estimate; IVF Pregnancy No; Initial or repeat testing Initial testing; Insulin dependent diabetes No; Maternal Weight 166 lbs; Number of Fetuses 1; Physician Phone Number 802-748-7300; Prev Pregnancy w/NTD No; RECOMMENDED FOLLOW UP None.; Results Summary Normal risk
== END 2024-06-02 13:46 | disposition home or self-care (01) ==
LOC: LBO 13:46
PROVIDERS: PCP Nurse Practitioner Family; Visit Provider Advanced Practice Midwife
DX: Z34.91 Encounter for supervision of normal pregnancy, unspecified, first trimester (principal)
CPT/HCPCS: 36415; 82105

== ENCOUNTER 2024-06-23 01:24 | Outpatient (CLI) | payer MEDICAID, SELFPAY ==
--- NOTE | 2024-06-23 07:00 | DI.US_ITS ---
Exam(s) US OB 2-3 TRIMESTER EXAM: US OB 2-3 TRIMESTER CLINICAL HISTORY: SURVEY,Z34.90. TECHNIQUE: Transabdominal obstetrical ultrasound was performed. COMPARISON: US POCUS EXAM from 04/09/2024 FINDINGS: There is a single viable intrauterine gestation with cardiac activity identified-144 bpm. Amniotic fluid: There is a normal amount of amniotic fluid. Placental location: The placenta is anterior grade 1,with no evidence of placenta previa.Distance bet ween the tip of placenta and the internal cervical os is 6 cm. The distance between the placental ma rgin and the cord insertion into the placenta is 4.3 cm. ANATOMY: A 3 vessel umbilical cord is seen. A four-chamber cardiac view was obtained. Right and left ventricular outflow tracts were imaged. There are no obvious abnormalities of the spinal column evident. There is no obvious abnormal ity of the anterior abdominal wall. stomach and urinary bladder are identified and there is no evidence of hydronephrosis. No abnormalities of the upper lip region are identified. No evidence of choroid plexus cysts i n the brain. Dating parameters place this at approximately 19 weeks and 6 days gestational age. BPD measures 19 weeks and 4 days HC measures 19 weeks and 6 days AC measures 20 weeks and 1 day FL measures 20 weeks and 0 days Estimated weight is 330 gm-0 pounds, 12 ounces Fetus is at the 74th percentile on the Hadlock scale. IMPRESSION:: Single viable intrauterine gestation which is approximately 19 weeks and 6 days gestati onal age, implying an JHONNY of November 11, 2024.. There are no obvious anomalies evident on today's study. The placenta is anterior with no evidence of placenta previa. There is a normal amount of amniotic fluid. DATA REPOSITORY:
== END 2024-06-23 01:44 ==
LOC: DI 01:24
PROVIDERS: PCP Nurse Practitioner Family; Visit Provider Advanced Practice Midwife
DX: Z34.92 Encounter for supervision of normal pregnancy, unspecified, second trimester (principal); Z3A.20 20 weeks gestation of pregnancy
CPT/HCPCS: 76805

== ENCOUNTER 2024-06-23 13:57 | Outpatient (REF) | payer MEDICAID, SELFPAY | END 2024-06-23 13:58 | disposition home or self-care (01) | LOC: LBN 13:57 | PROVIDERS: PCP Nurse Practitioner Family; Visit Provider Advanced Practice Midwife | DX: N39.0 Urinary tract infection, site not specified (principal); Z34.91 Encounter for supervision of normal pregnancy, unspecified, first trimester | CPT/HCPCS: 87086 ==

== ENCOUNTER 2024-08-19 02:33 | Outpatient (CLI) | payer MEDICAID, SELFPAY ==
[2024-08-19 11:19] LABS: HCT 37.2 % (36.0-46.0); HGB 12.7 g/dL (11.2-15.7); MCH 32.2 pg (27.0-33.0); MCHC 34.1 % (32.0-36.0); MCV 94 fL (80-95); MPV 11.3 fL (8.0-11.0); Platelet Count 198 10^3/uL (130-400); RBC 3.94 10^6/uL (3.93-5.22); RDW 12.2 % (11.7-14.6); RDW-SD 42.3 fL; WBC 10.72 10^3/uL (4.4-10.8)
[2024-08-19 11:40] LABS: Glucose,1 Hr (Glucola) 110 mg/dL (80-140)
== END 2024-08-19 02:34 | disposition home or self-care (01) ==
PROVIDERS: PCP Nurse Practitioner Family; Visit Provider Advanced Practice Midwife
DX: Z34.92 Encounter for supervision of normal pregnancy, unspecified, second trimester (principal)
CPT/HCPCS: 36415; 82950; 85027

== ENCOUNTER 2024-08-28 15:20 | Outpatient (CLI) | payer MEDICAID, SELFPAY ==
[2024-08-28 16:06] VITALS: BP 120/64; PULSE 103; TEMP 36.6
[2024-08-28 16:13] VITALS: BP 120/64; PULSE 103
[2024-08-28] MEDS: Acetaminophen 500 MG TAB 1000 MG PO (16:40)
[2024-08-28 16:52] VITALS: BP 120/64; PULSE 103; TEMP 36.6
--- NOTE | 2024-08-28 16:52 | W.OBNST ---
Date of service: 08/28/24 Time of Service: 16:52 NST Evaluation Reason for NST Reasons for Nonstress Test: OTHER, SEE COMMENT Reason for NST Other: Headache, BP check Gestational Age Gestational Age in Weeks and Days: 29 Weeks and 0Days Test and Monitor Explained Test/Monitor Explained: Test Explained, Monitor Explained and Patient Verbalized Understanding Vital Signs Blood Pressure: 120/64 Pulse: 103 Temperature: 97.9 F Urine Results Urine Protein: Negative Urine Ketones: Negative Urine Glucose: Negative Urine Blood: Negative NST Information Date on Monitor: 08/28/24 Time on Monitor: 16:10 Date off Monitor: 08/28/24 Time off Monitor: 16:42 Total Time on Monitor: 32 NST Interventions: PO Hydration Contraction Frequency: None NST Evaluation Patient States Movement: Present FHR Baseline: 140 Variability: Moderate 6-25 bpm Accelerations: 15x15 Decelerations: Variable NST Results: Reactive Note Ultrasound Done: N/A. NST Note NST Reviewed and Verified by: Florida Campuzano
[2024-08-29 12:08] VITALS: BP 130/92; PULSE 78
[2024-08-29 12:32] VITALS: BP 118/77; PULSE 77
== END 2024-08-28 16:51 ==
LOC: BCD 15:22 → OBS 15:23
PROVIDERS: PCP Nurse Practitioner Family; Visit Provider Advanced Practice Midwife
DX: O99.891 Other specified diseases and conditions complicating pregnancy (principal); R51.9 Headache, unspecified; Z3A.29 29 weeks gestation of pregnancy
CPT/HCPCS: 59025

== ENCOUNTER 2024-10-22 16:07 | Outpatient (REF) | payer MEDICAID, SELFPAY | END 2024-10-22 16:08 | disposition home or self-care (01) | LOC: LBN 16:07 | PROVIDERS: PCP Nurse Practitioner Family; Visit Provider Advanced Practice Midwife | DX: Z34.93 Encounter for supervision of normal pregnancy, unspecified, third trimester (principal) | CPT/HCPCS: 87081 ==

== ENCOUNTER 2024-11-14 00:35 | Inpatient (IN) | payer MEDICAID, SELFPAY ==
[2024-11-14] VITALS (71 sets, daily range): BP systolic 100–133; BP diastolic 46–76; PULSE 65–109; RESP 16; TEMP 36.3–36.6; O2SAT 95–98; BMI 40.2
--- NOTE | 2024-11-14 01:21 | W.PM.OBHPL1 ---
Date of service: 11/14/24 Time of Service: : Assessment and Plan Assessment and plan (1) Normal labor: Status: Acute Assessment and plan: A: 19 yo G1 @ 40+1 wks, spontaneous onset early labor GBS negative, TWG >40 wks Category 1 tracing, intact membranes, Increased risk for SD, not at increased risk for PPH P: Offered pt therapeutic rest overnight Will observe for labor progression, comfort measures as pt desires OB-HPI Labor/Delivery History of Present Illness Reason for Visit: NST Chief Complaint: Uterine Contractions (contractions all day, getting more painful by 1999, by 2329 there was blood tinged mucous, no ROM, contractions coming every 5-7 minutes). JHONNY Calculator Estimated Delivery Date Method Current WG Current Estimate 11/13/24 Ultrasound #1 40w 1d Other Estimates 10/09/24 LMP (Certain) 45w 1d 11/13/24 Ultrasound #2 40w 1d History of Present Expected Delivery Route/Plan - CNM FOB/fiance - Al Paige (first child) Al and mother, Aaliyah and sister Emily for labor support. Hopes to avoid epidural, use tub, ball and nitrous, be active Caridad requests MD in-house for labor and GBS negative Specific Issues/Plan 1. cfDNA low risk female, CF neg, AFP - low risk 2. Hx anxiety, no meds now, declines referral 3. PHQ9 score=1, 5P screen negative 4. Low dose ASA for nulliparity and fam hx gHTN, CMP - WNL 5. Plan LC consult after 36 wks- completed 6. Dysuria - takes cranberry tablet daily Assessment: History Reviewed & Current Review of Systems Narrative: ROS completed and found to be noncontributory other than HPI PFSH All Active Problems (Updated 11/14/24 @ 01:52 by [place] Campuzano) Normal labor (Acute) Back pain (Acute) Anxiety associated with birthing process (Acute) (Acute) Frequent urinary tract infections (Acute) Anxiety (Chronic) Insomnia (Acute) Medical History Excessive vomiting 04/08/24. 9w EGA. Rx for ondansetron of unknown anatomic location Hypomagnesemia Menstrual periods irregular GERD (gastroesophageal reflux disease) H. pylori infection Abdominal pain GI consult: pending upper and lower GI series. trial of cyproheptadine Family history of multiple endocrine neoplasia (MEN) syndrome (08/09/16) Pain of left calf Lower abdominal pain Cellulitis of left upper extremity History of seizure as Family History Mother Mental disorder bipolar Depression suicide attempts Depression Father Essential hypertension Ulcer Multiple endocrine neoplasia (MEN) syndrome Diabetes Adopted Brother Hypertension Grandparent Heart disease Mgm and Mgf with heart problems Neoplasm Other Substance abuse Social History Smoking/Tobacco Use Status: Current-Occasional Tobacco Type: e-cigarettes Smokeless tobacco user: other (vape) Quit status: has quit before Second Hand Exposure: No Counseling given: provider counseling Smoking risk assessment performed?: Yes Alcohol Intake: current Alcohol Intake frequency: holidays/special occasions only Alcohol type: beer Counseling given: Yes Counseling provided: provider counseling Drug use: Never Substance use type: does not use Adopted: No Caregiver/Support person: No Household members: none Housing: apartment Number of Children: 0 number of grandchildren: 0 Communication Needs: None Education Level: high school Do you need help understanding health information?: Rarely Pets and animals: Yes Pets and animals: cat(s) Sexually active: Yes Do you think of yourself as: straight/heterosexual Current gender identity: female How often do you talk on the phone with friends or family?: three or more times per week How often do you get together with friends or relatives?: three or more times per week How often do you attend congregational or congregation services?: decline to answer Do you belong to any clubs or organized social groups?: no Panel score (0-1 are the most socially isolated patients): 1 NHANES result reviewed/action taken: Yes What type of physical activity do you participate in: walking Duration: 45-60 minutes/day Frequency: 3-4 times per week Special alma rosa needs: No Seatbelt use: always Helmet use: No Drive intox or ride w/intox regional truck driver: No Firearms in home: No Do you feel safe at home: Yes Do you feel safe in your relationship?: Yes Female Reproductive History Menstrual control method: none, pills and condoms History History 1 Para 0 Hx # Term Pregnancies 0 Multiple births 0 Hx # Pregnancies 0 Ectopic pregnancies 0 AB induced 0 Hx Number of Living Children 0 AB spontaneous 0 Meds Allergies and Home Medications Allergies Allergy/AdvReac Type Severity Reaction Status Date / Time tree and shrub pollen Allergy Intermediate Other (See Verified 11/12/24 15:26 Comment) aloe Allergy Unknown Skin Rash Verified 11/12/24 15:26 codeine AdvReac Intermediate Agitation Verified 11/12/24 15:26 Home Medications ?Medication ?Instructions ?Recorded ?Confirmed ?Type vitamin with calcium 1 tab PO DAILY #90 tabs 03/03/24 11/12/24 Rx no.72-iron 27 mg-folic acid 1 mg tablet aspirin 81 mg tablet,delayed 81 mg PO DAILY #135 tabs 05/06/24 11/12/24 Rx release famotidine 20 mg tablet 20 mg PO DAILY #30 tabs 07/07/24 11/12/24 Rx Exam Physical Exam Vital Signs Reviewed: Yes Constitutional Constitutional: moderate distress, obese and cooperative Detailed Labor and Delivery Exam Dilation: 3 Effacement (%): 90 station: -3 Cervix position: posterior Consistency: medium HAIR Score(Cervical Ripeness Score): 6 Amniotic Membrane Status: Intact Contraction Frequency(min): q5-6 Contraction Duration(sec): 60 Contraction Intensity: Mild/Moderate Fetus A Heart Rate Baseline: 135 Monitor Accelerations: Present Monitor Decelerations: None Variability: Moderate (6-25 BPM) Categories: Category I Est. Weight: 8 lb 4.277 oz Est. Weight: 3750 gms HEENT Exam HEENT Exam: Normal Neck Exam Neck Exam: Normal Chest/Brest/Axilla Exam Chest Exam: Normal Breast Exam Breast Exam: Not Done Respiratory Exam Respiratory Exam: Normal Cardiovascular Exam Cardiovascular Exam: Normal Abdominal Exam Abdominal Exam: Normal (gravid, nontender) Rectal Exam Rectal Exam: Normal Exam Exam: Normal Extremities Exam Extremities Exam: Normal Back/Spine/Pelvis Exam Back Exam: Normal Pelvis Adequate: Yes Skin Exam Skin Exam: Normal Neurological Exam Neurological Exam: Normal Psychiatric Exam Psychiatric Exam: Normal Results Results Group Beta Strep: Negative Blood Type: B+ Rubella Status: Immune Varicella Immunity: Immune Risk Assessment Risk for Shoulder Dystocia Historical/Initial OB: NEGATIVE FOR: Pelvic Abnormality, Pre- BMI>30, Previous Shoulder Dystocia or Previous Macrosomia 36 Weeks: POSITIVE FOR: Maternal Weight Gain>40lbs; NEGATIVE FOR: Current Gestational DM 40 Weeks: POSTIVE FOR: Maternal Weight Gain >40lb Increased Risk?: Yes Delivery Plan @ 40 wks: is planned, increased risk d/t primipara status and elevated TWG Risk for Pre-Eclampsia Daily Dose ASA Indicated: Yes Date Initiated/Initials: to start @ 12 wks JK Yes, if one or more: NEGATIVE FOR: Hx Pre-E/Gest HTN, Chronic HTN, Multiple Gestation, Pre-gestational DM, Renal Disease, Systemic Lupus or APA Syndrome Yes, if 2 or more: POSITIVE FOR: Nulliparity and Mother/Sister w/ Pre-E; NEGATIVE FOR: Age>= 35 yrs, >10yr btwn pregnancies, BMI>30, ethinicty or Previous IUGR Risk for Post- Hemorrhage Initial: NEGATIVE FOR: Multiple Gestation, Previous PPH, Known Clotting Deficiency, Grand Multiparity or Anticoagulation 36 Weeks: NEGATIVE FOR: Anemia, hgb<10, Low platelets(thrombocytopenia), Gestational HTN or Pre-E, Polyhydraminios or EFW>4500gms At Risk?: No Counseled re: Active Management: Yes Risks Reviewed Risks Reviewed Upon Admission: Yes
--- NOTE | 2024-11-14 07:47 | W.OBNST ---
Date of service: 11/14/24 Time of Service: 02:00 NST Evaluation Reason for NST Reasons for Nonstress Test: OTHER, SEE COMMENT Reason for NST Other: term labor Gestational Age Gestational Age in Weeks and Days: 40 Weeks and 1Days Test and Monitor Explained Test/Monitor Explained: Test Explained Vital Signs Blood Pressure: 115/61 Pulse: 82 Temperature: 97.7 F Urine Results Urine Protein: Negative Urine Ketones: Positive Urine Glucose: Negative Urine Blood: Negative NST Information Date on Monitor: 11/14/24 Time on Monitor: : Date off Monitor: 11/14/24 Time off Monitor: 01:52 Total Time on Monitor: 27 NST Interventions: None NST Evaluation Patient States Movement: Present FHR Baseline: 135 Variability: Moderate 6-25 bpm Accelerations: 15x15 Decelerations: None Note Ultrasound Done: N/A. NST Note NST Reviewed and Verified by: Florida Campuzano
--- NOTE | 2024-11-14 07:47 | W.PM.OBNL1 ---
Date of service: 11/14/24 Time of Service: 07:47 Pelvic Exam Dilation: 3 Effacement (%): 100 station: -2 Cervix Position: mid Consistency: soft Contractions Monitor Mode: External Contraction Frequency(min): q3-4 Intensity: Mild/Moderate Fetus A Monitor: External (US) Heart Rate Baseline: 140 Variability: Moderate (6-25 BPM) Categories: Category I Accelerations: Present Decelerations: None Amniotic Membrane Status: Intact Assessment and Plan Assessment and plan (1) Normal labor: Status: Acute Assessment and plan: A: Latent phase labor through the night, becoming more active Pain management needed, requests epidural P: Admit to inpt, CBC and T&S Initiate IV access and COLOR FINISHER paged Anticipate Objective Temp Pulse Resp BP 97.9 F 75 16 118/60 11/14/24 06:43 11/14/24 07:46 11/14/24 06:43 11/14/24 07:46 Vital Signs Reviewed: Yes Subjective Interval history since last seen: pain is terrible, morphine did not help, could not sleep, has decided she wants an epidural
[2024-11-14 08:10] LABS: HCT 36.2 % (36.0-46.0); HGB 12.8 g/dL (11.2-15.7); MCH 32.3 pg (27.0-33.0); MCHC 35.4 % (32.0-36.0); MCV 91 fL (80-95); MPV 11.7 fL (8.0-11.0); Platelet Count 183 10^3/uL (130-400); RBC 3.96 10^6/uL (3.93-5.22); RDW 11.9 % (11.7-14.6); RDW-SD 40.1 fL; WBC 18.35 10^3/uL (4.4-10.8)
--- NOTE | 2024-11-14 09:11 | ANES.PREOP_ITS ---
General Info Date of Service Date Performed: 11/14/24 Height: 5 ft 2 in Weight: 99.79 kg Body Mass Index (BMI): 40.2 Meds Allergies and Home Medications Allergies Allergy/AdvReac Type Severity Reaction Status Date / Time tree and shrub pollen Allergy Intermediate Other (See Verified 11/12/24 15:26 Comment) aloe Allergy Unknown Skin Rash Verified 11/12/24 15:26 codeine AdvReac Intermediate Agitation Verified 11/12/24 15:26 Home Medication ?Medication ?Instructions ?Recorded vitamin with calcium 1 tab PO DAILY #90 tabs 03/03/24 no.72-iron 27 mg-folic acid 1 mg tablet aspirin 81 mg tablet,delayed 81 mg PO DAILY #135 tabs 05/06/24 release famotidine 20 mg tablet 20 mg PO DAILY #30 tabs 07/07/24 Current Visit Medications: Current Medications Generic Name Dose Route Start Last Admin Trade Name Freq PRN Reason Stop Dose Admin Fentanyl/Ropivacaine 200 ml 11/14/24 08:00 Fentanyl/Ropivacaine 2 Mcg/Ml And 0.1% 200 Ml [place] Cassette EP DIRECTED TAHMINA IV Miscellaneous Supplies 1 each 11/14/24 08:00 Iv Access IV DIRECTED TAHMINA Sodium Chloride 0 ml 11/14/24 07:46 Normal Saline Flush 10 Ml Syr IVP PRN PRN Sodium Chloride 0 ml 11/14/24 08:30 Normal Saline Flush 10 Ml Syr IVP BID TAHMINA Sodium Chloride 0 ml 11/14/24 07:46 Normal Saline 10 Ml Vial IJ DIRECTED PRN PFSH Active Problems Active Problems: Problem Status Onset Code Normal labor Acute O80, Z37.9 Back pain Acute M54.9 Anxiety associated with birthing process Acute O99.340, F41.9 Acute Z34.90 Frequent urinary tract infections Acute N39.0 Anxiety Chronic F41.9 Insomnia Acute G47.00 Medical History Medical History Excessive vomiting 04/08/24. 9w EGA. Rx for ondansetron of unknown anatomic location Hypomagnesemia Menstrual periods irregular GERD (gastroesophageal reflux disease) H. pylori infection Abdominal pain GI consult: pending upper and lower GI series. trial of cyproheptadine Family history of multiple endocrine neoplasia (MEN) syndrome (08/09/16) Pain of left calf Lower abdominal pain Cellulitis of left upper extremity History of seizure as Tobacco Smoking/Tobacco Use Status: Current-Occasional Tobacco Type: e-cigarettes Smokeless tobacco user: other (vape) Passive smoking exposure: No Second hand exposure: No Counseling given: provider counseling Alcohol Alcohol Intake: current Alcohol intake frequency: holidays/special occasions only Alcohol type: beer Counseling provided: provider counseling Substance Use Substance use: Never Substance use type: does not use Prental History History 2 1 Para 0 Hx # Term Pregnancies 0 Multiple births 0 Hx # Pregnancies 0 Ectopic pregnancies 0 AB induced 0 Hx Number of Living Children 0 AB spontaneous 0 Vital Signs and Lab Results Vital Signs Most Recent Vital Signs in EMR: Most Recent Vital Signs Temp Pulse Resp BP 36.6 C 75 16 118/60 11/14/24 06:43 11/14/24 07:46 11/14/24 06:43 11/14/24 07:46 Lab Results 11/14/24 08:00 Blood Type / Crossmatch: 2 Antibody Screen NEGATIVE 11/14/24 Complete Blood Count: 2 White Blood Count 18.35 10^3/uL (4.4-10.8) H 11/14/24 08:00 Red Blood Count 3.96 10^6/uL (3.93-5.22) 11/14/24 08:00 Hemoglobin 12.8 g/dL (11.2-15.7) 11/14/24 08:00 Hematocrit 36.2 % (36.0-46.0) 11/14/24 08:00 Platelet Count 183 10^3/uL (130-400) 11/14/24 08:00 Complete Metabolic Panel: 2 No Data to Display Liver Function Panel: 2 No Data to Display Coagulation Panel: 2 No Data to Display Cardiac Panel: 2 No Data to Display Arterial Blood Gas: 2 No Data to Display Venous Blood Gas: 2 No Data to Display Pancreas Panel: 2 No Data to Display Thyroid Panel: 2 No Data to Display Infectious Disease: 2 No Data to Display Blood Cultures: 2 No Data to Display Toxicology Panel: 2 No Data to Display Panel: 2 No Data to Display Imaging and Studies Imaging and Studies Study information below may be from another EMR and interpreted by another provider. Please see original notes in EMR for more complete details. EKG Summary: 07/05/23: Exam: Resting ECG Reason for Exam: SOB Patient Location: E HR:66 bpm ECG Measurements Heart Rate 66 AXIS WY 144 P 49 QRSd 88 QRS 57 QT 381 T53 QTc 399 Conclusion Age and gender not entered, assume 48 yo male for purpose of ECG interpretation Sinus rhythm...normal P axis, V-rate 60- 99 I have reviewed and I agree with the emergency room physician's ECG interpretation. Anesthesia Assessment and Plan Anesthesia History Personal History: No History of General Anesthesia Family History: No Family History of Anesthesia Complications Exercise Tolerance Exercise Tolerance: Metabolic Equivalents>4 Pertinent Negatives Pertinent Negatives: No Major Cardiovascular Symptoms or Complaints and No Major Pulmonary Symptoms or Complaints Cardiac & Pulmonary Exam Cardiac Exam: Normal S1/S2 Heart Sounds Pulmonary Exam: Clear Bilateral Breath Sounds Implantable Cardiac Device Does patient have a Pacemaker or an ICD?: No Airway Exam Known Difficult Airway: No Mallampati Class: 3 Mouth Opening: Normal (> 3cm) Thyromental Distance: Greater than 3 cm Neck Range of Motion: Full ROM Neck Circumference: Normal Teeth Condition: Normal Dentition ASA Classification ASA Score: ASA 3 Emergency Case?: No NPO Status NPO Status: NPO Clears >2 hours, Solids >8 hours Status Status: Confirmed Anesthesia Plan Resuscitation Status: Full Code Anesthesia Technique: Epidural Anesthesia Airway Planned: Natural Airway Monitors Used: Standard Monitors
--- NOTE | 2024-11-14 09:44 | W.ANESNEU ---
Epidural/Spinal Catheter Date Performed: 11/14/24 Procedure Start: : Procedure Stop: :45 Requesting Provider: Cheyenne Scott Procedure Location: Obstetrics Reason Performed: Labor Epidural Standard Monitors Applied: Blood Pressure, SpO2 and See EMR for corresponding vital signs Patient Position: Sitting Sedation Given (Indicate Dose Given): No Sedation given Patient Mental Status: Awake Sterility: Hand Hygiene, Surgical Cap, Surgical Mask, Sterile Gloves, Sterile Drape/Sheet and Chlorhexidine Procedure Location: L2-L3 Interspace Epidural Needle: Tuohy 18 Gauge Needle Length: 3.5 Inch Needle Approach: Midline Epidural Procedure: Skin Prepped, Sterile Drape Placed, 1% Lidocaine to skin and subcutaneous tissue with 25G needle, Tuohy Needle placed, ROBERTO to Saline Used, Epidural Catheter Placed, Negative Heme, Negative CSF Flow and Tuohy Needle Removed Catheter Placed?: Catheter Placed Test Dose (Indicate Dose Given): 3ml 1.5% Lidocaine with 1:200K Epinephrine Given Loss of Resistance Depth (cm): 9 Catheter depth at skin (cm): 16 Dressing: Sorbaview Dressing Placed, Mastisol Used and Dressing reinforced with Tape Epidural Provider Bolus (Indicate Dose Given): Total bolus dose given in 3-5 ml divided doses and Total Ropivacaine 0.1% with Fentanyl 2mcg/ml Given from pump. (ml) Dose:: 3mL Additives (Indicate Dose Given ): None Infusion Medication: Medication Infusion Began Medication Infusion: Ropivacaine 0.1% with Fentanyl 2mcg/ml Maintenance Infusion Rate (ml/hour): 10 PCEA Bolus Dose (ml): 5 Block Level: N/A Paresthesia: None Ultrasound: Not Used Number of Attempts (See previous attempts in note section): 1 Procedure Tolerated: No Complications Procedure Outcome: Successful Performed By: Josefina Sin
[2024-11-14] MEDS: FentaNYL/ROPIvacaine 2 mcg/ml and 0.1% 200 ML CADD Cassette EP (09:47)
--- NOTE | 2024-11-14 11:51 | W.PM.OBNL1 ---
Date of service: 11/14/24 Time of Service: 11:51 Informed Consent Informed Consent: Augmentation of Labor Pelvic Exam Dilation: 4 Effacement (%): 85 station: -2 Cervix Position: mid Consistency: soft Vaginal Exam Presentation: Vertex Contractions Monitor Mode: External Contraction Frequency(min): every 3-4 Contraction Duration(sec): 60 Intensity: Moderate/Strong Fetus A Monitor: External (US) Heart Rate Baseline: 140 Presentation: Cephalic Variability: Moderate (6-25 BPM) Categories: Category I Accelerations: 15 X 15 Decelerations: None Amniotic Membrane Status: Intact Assessment and Plan Assessment and plan (1) Normal labor: Status: Acute Assessment and plan: Rest was encouraged. Straight cath for 100 cc clear urine. Discussed labor augmentation with Caridad if indicated and she agrees. Objective Abnormal lab results 11/14/24 Range/Units 08:00 WBC 18.35 H (4.4-10.8) 10^3/uL MPV 11.7 H (8.0-11.0) fL Temp Pulse Resp BP Pulse Ox 97.9 F 88 16 102/58 L 97 11/14/24 06:43 11/14/24 11:46 11/14/24 09:00 11/14/24 11:46 11/14/24 10:12 Laboratory Results WBC 18.35 10^3/uL (4.4-10.8) H 11/14/24 08:00 RBC 3.96 10^6/uL (3.93-5.22) 11/14/24 08:00 Hgb 12.8 g/dL (11.2-15.7) 11/14/24 08:00 Hct 36.2 % (36.0-46.0) 11/14/24 08:00 MCV 91 fL (80-95) 11/14/24 08:00 MCH 32.3 pg (27.0-33.0) 11/14/24 08:00 MCHC 35.4 % (32.0-36.0) 11/14/24 08:00 RDW 11.9 % (11.7-14.6) 11/14/24 08:00 Plt Count 183 10^3/uL (130-400) 11/14/24 08:00 MPV 11.7 fL (8.0-11.0) H 11/14/24 08:00 ABO/Rh B Positive 11/14/24 08:00 Antibody Screen NEGATIVE 11/14/24 08:00 Subjective Patient Reports: No new Complaints Interval history since last seen: Caridad has been resting comfortably. She awoke when her position was changed to left side by RN. Results Hemoglobin/Hematocrit: Hgb 12.8 g/dL (11.2-15.7) 11/14/24 08:00 Hct 36.2 % (36.0-46.0) 11/14/24 08:00 Abnormal Lab Findings: Abnormal Labs 11/14/24 08:00 WBC 18.35 H MPV 11.7 H
[2024-11-14] MEDS: Oxytocin/Normal Saline 30 UNIT/500 ML BAG 2 UNITS IV (13:18)
[2024-11-14] MEDS: Lactated Ringers 1,000 ML 125 ML IV ×2 (14:30→18:12)
--- NOTE | 2024-11-14 14:32 | W.PM.OBNL1 ---
Date of service: 11/14/24 Time of Service: 14:33 Informed Consent Informed Consent: Augmentation of Labor Pelvic Exam Dilation: 7 Effacement (%): 100 station: 0 Cervix Position: mid Consistency: soft Pooling: Positive Comments: AROM for light meconium stained fluid Contractions Monitor Mode: External Contraction Frequency(min): every 3 Contraction Duration(sec): 60 Intensity: Moderate/Strong Fetus A Monitor: External (US) Heart Rate Baseline: 150 Variability: Moderate (6-25 BPM) Categories: Category II FHR Rhythm: Regular Accelerations: 15 X 15 Decelerations: Prolonged (prolonged deceleration at 1430 5 minutes after AROM. IV fluid bolus 300 cc was in progress. Resolved ater 2 minutes. ) Amniotic Membrane Status: Ruptured Rupture Method: Artifical Amniotic Fluid: Meconium (light meconium) Amount: scant Date of Membrane Rupture: 11/14/24 Time of Membrane Rupture: 12:25 Assessment and Plan Assessment and plan (1) Normal labor: Status: Acute Assessment and plan: 300 cc LR bolus administered. Will continue to assess labor progress and heart rate pattern. Dr Ch was present on the unit and is aware of heart rate pattern. Objective Abnormal lab results 11/14/24 Range/Units 08:00 WBC 18.35 H (4.4-10.8) 10^3/uL MPV 11.7 H (8.0-11.0) fL Temp Pulse Resp BP Pulse Ox 97.9 F 98 H 16 133/76 97 11/14/24 06:43 11/14/24 14:31 11/14/24 09:47 11/14/24 14:31 11/14/24 10:12 Laboratory Results WBC 18.35 10^3/uL (4.4-10.8) H 11/14/24 08:00 RBC 3.96 10^6/uL (3.93-5.22) 11/14/24 08:00 Hgb 12.8 g/dL (11.2-15.7) 11/14/24 08:00 Hct 36.2 % (36.0-46.0) 11/14/24 08:00 MCV 91 fL (80-95) 11/14/24 08:00 MCH 32.3 pg (27.0-33.0) 11/14/24 08:00 MCHC 35.4 % (32.0-36.0) 11/14/24 08:00 RDW 11.9 % (11.7-14.6) 11/14/24 08:00 Plt Count 183 10^3/uL (130-400) 11/14/24 08:00 MPV 11.7 fL (8.0-11.0) H 11/14/24 08:00 ABO/Rh B Positive 11/14/24 08:00 Antibody Screen NEGATIVE 11/14/24 08:00 Subjective Patient Reports: No new Complaints Interval history since last seen: Caridad has been resting comfortably. Straight cathed for 70 cc dark yellow urine Results Hemoglobin/Hematocrit: Hgb 12.8 g/dL (11.2-15.7) 11/14/24 08:00 Hct 36.2 % (36.0-46.0) 11/14/24 08:00 Abnormal Lab Findings: Abnormal Labs 11/14/24 08:00 WBC 18.35 H MPV 11.7 H
--- NOTE | 2024-11-14 16:32 | W.PM.OBNL1 ---
Date of service: 11/14/24 Time of Service: 16:32 Informed Consent Informed Consent: Augmentation of Labor Pelvic Exam Dilation: 8 Effacement (%): 100 station: 0 Cervix Position: mid Consistency: soft Comments: anterior cervical edema Contractions Monitor Mode: External Contraction Frequency(min): every 3 min Contraction Duration(sec): 60 Intensity: Strong Fetus A Monitor: External (US) Heart Rate Baseline: 150 Presentation: Cephalic Variability: Moderate (6-25 BPM) Categories: Category I FHR Rhythm: Regular Accelerations: 15 X 15 Decelerations: Variable Recurrence: Intermittent Amniotic Membrane Status: Ruptured Assessment and Plan Assessment and plan (1) Normal labor: Status: Acute Assessment and plan: Will reassess for cervical change in 2 hours. Cool clothes. Position changes for comfort. Objective Abnormal lab results 11/14/24 Range/Units 08:00 WBC 18.35 H (4.4-10.8) 10^3/uL MPV 11.7 H (8.0-11.0) fL Temp Pulse Resp BP Pulse Ox 97.9 F 100 H 16 128/69 97 11/14/24 06:43 11/14/24 16:32 11/14/24 09:47 11/14/24 16:32 11/14/24 10:12 Laboratory Results WBC 18.35 10^3/uL (4.4-10.8) H 11/14/24 08:00 RBC 3.96 10^6/uL (3.93-5.22) 11/14/24 08:00 Hgb 12.8 g/dL (11.2-15.7) 11/14/24 08:00 Hct 36.2 % (36.0-46.0) 11/14/24 08:00 MCV 91 fL (80-95) 11/14/24 08:00 MCH 32.3 pg (27.0-33.0) 11/14/24 08:00 MCHC 35.4 % (32.0-36.0) 11/14/24 08:00 RDW 11.9 % (11.7-14.6) 11/14/24 08:00 Plt Count 183 10^3/uL (130-400) 11/14/24 08:00 MPV 11.7 fL (8.0-11.0) H 11/14/24 08:00 ABO/Rh B Positive 11/14/24 08:00 Antibody Screen NEGATIVE 11/14/24 08:00 Subjective Patient Reports: New Complaints Interval history since last seen: Caridad complains of dizziness and she vomited. Seated upright in bed. She is receiving good support from her mother. Results Hemoglobin/Hematocrit: Hgb 12.8 g/dL (11.2-15.7) 11/14/24 08:00 Hct 36.2 % (36.0-46.0) 11/14/24 08:00 Abnormal Lab Findings: Abnormal Labs 11/14/24 08:00 WBC 18.35 H MPV 11.7 H
--- NOTE | 2024-11-14 18:37 | W.PM.OBNL1 ---
Date of service: 11/14/24 Time of Service: 18:37 Informed Consent Informed Consent: Augmentation of Labor Pelvic Exam Dilation: 9.5 station: +1 Cervix Position: mid Consistency: soft Comments: anterior rim . Caridad attempted pushing and the anterior rim could not be reduced. Straight cathed for 50 cc concentrated urine. IV bolus 300 cc provided due to low urine output. Contractions Monitor Mode: External Contraction Frequency(min): every 2-3 min Contraction Duration(sec): 60 Intensity: Strong Fetus A Monitor: External (US) Heart Rate Baseline: 155 Presentation: Cephalic Variability: Moderate (6-25 BPM) Categories: Category I FHR Rhythm: Regular Accelerations: 15 X 15 Decelerations: None Assessment and Plan Assessment and plan (1) Normal labor: Status: Acute Assessment and plan: Awaiting stronger urge to push and descent. Will begin active pushing when fully dilated. She was encouraged to avoid LIFE SCIENCE TEACHER use at this time. Anticipate . Objective Abnormal lab results 11/14/24 Range/Units 08:00 WBC 18.35 H (4.4-10.8) 10^3/uL MPV 11.7 H (8.0-11.0) fL Temp Pulse Resp BP Pulse Ox 97.9 F 80 16 125/61 97 11/14/24 06:43 11/14/24 18:32 11/14/24 09:47 11/14/24 18:32 11/14/24 10:12 Laboratory Results WBC 18.35 10^3/uL (4.4-10.8) H 11/14/24 08:00 RBC 3.96 10^6/uL (3.93-5.22) 11/14/24 08:00 Hgb 12.8 g/dL (11.2-15.7) 11/14/24 08:00 Hct 36.2 % (36.0-46.0) 11/14/24 08:00 MCV 91 fL (80-95) 11/14/24 08:00 MCH 32.3 pg (27.0-33.0) 11/14/24 08:00 MCHC 35.4 % (32.0-36.0) 11/14/24 08:00 RDW 11.9 % (11.7-14.6) 11/14/24 08:00 Plt Count 183 10^3/uL (130-400) 11/14/24 08:00 MPV 11.7 fL (8.0-11.0) H 11/14/24 08:00 ABO/Rh B Positive 11/14/24 08:00 Antibody Screen NEGATIVE 11/14/24 08:00 Subjective Patient Reports: New Complaints Interval history since last seen: Caridad is feeling more pain and pressure but no urge to push. Trace of edema noted. She vomited earlier approximately 100 cc Results Hemoglobin/Hematocrit: Hgb 12.8 g/dL (11.2-15.7) 11/14/24 08:00 Hct 36.2 % (36.0-46.0) 11/14/24 08:00 Abnormal Lab Findings: Abnormal Labs 11/14/24 08:00 WBC 18.35 H MPV 11.7 H
--- NOTE | 2024-11-14 21:25 | W.OBDELIVERY ---
Date of service: 11/14/24 Time of Service: 21:25 OB Labor/ Delivery Information Baby A Delivery Delivery Method: Spontaneaous Presentation: Cephalic Cephalic Position: Vertex Vertex Position: Left Occipital Anterior Cord Description-Baby A: 3 Vessels Cord Description Comment: short cord, nuchal cord Amniotic Fluid: Meconium Estimated Blood Loss: 300 Delivery Outcome: Liveborn Infant Transferred: Remains with Mother Note: Caridad felt a stronger urge to push and she began bearing down well. Anterior rim was reduced easily. FHTs 140s during first stage of labor. FHTs 150-170 in second stage with occasional variable decelerations. A scalp electrode was placed for better tracing. Dr. Ch was present on the unit during the second stage. Caridad progressed to full dilation and began pushing. Second stage huddle was done. Spontaneous delivery of female infant delivered in FRANSISCA position. Baby was placed on mother's abdomen and dried and stimulated. Spontaneous cry. decreased tone and respiratory effort was noted at delivery. Cord was clamped and cut immediately and handed to Dr Mac for assessment. He was dried and stimulated and had a spontaneous cry. Cord blood gasses were obtained. The placenta delivered spontaneously and appears to be intact with a three vessel cord. Pitocin 30 units IV was administered before delivery of the placenta. The perineum was inspected and a first degree laceration was repaired under epidural analgesia. The baby did breastfeed with a nipple shield. After delivery, Mother and baby and father of the baby were stable and bonding well in the delivery room and there were no complications. Providers Nurse Medical Billing And Coding Instructor: Cheyenne Scott Nurse: Joslyn Davis Nurse: Iesha Garcia Labor/Delivery Information Number of Babies in Womb: 1 Steroids Given: None Reason Steroids Not Administered: N/A Group Beta Strep: Negative Antibiotics Administered: No Rubella Status: Immune Blood Type: B+ Varicella Immunity: Immune Born En Route: No Maternal Complications: None Shoulder Dystocia: No Stages of Labor Onset of Labor Date: 11/14/24 Onset of Labor Time: 13:18 Complete Dilatation Date: 11/14/24 Complete Dilatation Time: 18:37 Labor - Stage 1 Duration: 5 hours and 19 minutes ROM Baby A: 11/14/24 ROM Baby A: 12:25 ROM Total Time- Baby A: [id number] Delivery Date-Baby A: 11/14/24 Delivery Time-Baby A: 19:54 Labor Stage 2 Duration: 1 hours and 17 minutes Placenta Delivery Date-Baby A: 11/14/24 Placenta Delivery Time-Baby A: 20:01 Labor-Stage 3 Duration: 7 minutes Total Length of Labor-Baby A: 6 hours and 36 minutes Placenta Status: Delivered Baby A Infant Gender: Female Gestational Status: Term (39-41.6 wks) Gestational Age in Weeks/Days: 40 Weeks and 1 Days Score-1 Minute Interval(Baby A) Heart Rate-1 minute: 100 BPM or Greater Respiratory Effort- 1 minute: Slow Respiration/Weak Cry Muscle Tone-1 minute: Minimal Flexion/Extension Reflex Response-1 minute: Minimal Response Color-1 minute: Bluish Hands or Feet Total Score-1 minute: 6 Score-5 Minute Interval(Baby A) Heart Rate- 5 minute: 100 BPM or Greater Respiratory Effort-5 minute: Spontaneous/Strong Cry Muscle Tone-5 minute: Active Movement Reflex Response-5 minute: Prompt Response Color-5 minute: Bluish Hands or Feet Total Score- 5 minute: 9 Interventions Repair of Laceration Type: Perineal, Laceration Extension: First Degree. Sponge Count Correct: No Sponges Placed in Vagina, Sharp Count Correct: No. Laceration Repair Note: repaired with 3-0 vicryl suture and right labial extension was repaired with a 4-0 vicryl suture
[2024-11-14] MEDS: Acetaminophen 325 MG TAB 650 MG PO (21:26)
[2024-11-14] MEDS: Ibuprofen 600 MG TAB PO (21:26)
--- NOTE | 2024-11-14 22:25 | W.ANESPOSTOP ---
Postoperative Evaluation Date, Time and Location Date Performed: 11/14/24 Time Performed: 22:15 Patient Location: Obstetrics Vital Signs Most Recent Imported Vital Signs: Most Recent Vital Signs Temp Pulse Resp BP Pulse Ox 36.6 C 83 16 124/59 L 97 11/14/24 06:43 11/14/24 21:46 11/14/24 09:47 11/14/24 21:46 11/14/24 10:12 Pain Score Most Recent Pain Score: Most Recent Pain Score Pain Level [Bilateral Lower 8 11/14/24 09:00 Abdomen] Pain Level 0 11/14/24 09:47 Assessment Mental Status: Awake (Alert & Oriented to Patient Baseline) Airway and Respiratory Function: Patent airway with normal (patient baseline) respiratory exam Cardiovascular Function: Hemodynamically Stable Hydration Status: Adequately Hydrated Nausea & Vomiting: No Nausea or Vomiting Pain: Pain is tolerable per patient Peripheral Nerve Block: Patient did not receive a nerve block Postoperative Comments:: Catheter removed, patient doing well. Resting and visiting with family.
[2024-11-15] MEDS: Hamamelis Leaf/Glycerin 100 EACH BOX PR
[2024-11-15] MEDS: Ibuprofen 600 MG TAB PO ×3 (06:40→20:32)
[2024-11-15] MEDS: Acetaminophen 325 MG TAB 650 MG PO ×3 (06:40→20:32)
[2024-11-15 08:30] VITALS: BP 105/65; PULSE 89; TEMP 37.3
--- NOTE | 2024-11-15 15:19 | W.PM.OBPNV1 ---
Date of service: 11/15/24 Time of Service: 20:01 Assessment and Plan Assessment and plan (1) Term of female : Status: Acute Assessment and plan: Caring for baby independently. Pain is managed well with oral analgesics. Voiding without difficulty. with assistance from nursing and Krystle PALACIOS A - stable mother and baby , Post day 1 P - Discharge to home tomorrow . Routine post instructions. [facility] Subjective Subjective Patient comments: No complaints Patient's Mood: good, tired baby status: Doing well and Bottle feeding well (with assistance) [place] feeding status: Exclusively breast feeding Exam Physical Exam Vital signs: Temp Pulse Resp BP Pulse Ox 99.1 F 89 16 105/65 97 11/15/24 08:30 11/15/24 08:30 11/14/24 09:47 11/15/24 08:30 11/14/24 10:12 Vital Signs Reviewed: Yes Constitutional Constitutional: no acute distress HEENT Exam HEENT Exam: Normal Respiratory Exam Respiratory Exam: Normal Cardiovascular Exam Cardiovascular Exam: Normal Fundal Exam Fundus: Below Umbilicus and Firm Extremities Exam Extremity Exam: Normal Skin Exam Skin Exam: Normal Psychiatric Exam Psychiatric Exam: Normal Results Hemoglobin/Hematocrit: Hgb 12.8 g/dL (11.2-15.7) 11/14/24 08:00 Hct 36.2 % (36.0-46.0) 11/14/24 08:00 Abnormal Lab Findings: Abnormal Labs 11/14/24 08:00 WBC 18.35 H MPV 11.7 H
[2024-11-15 15:58] VITALS: BP 119/66; PULSE 89; RESP 18; TEMP 36.6; O2SAT 98
[2024-11-15] MEDS: Dibucaine 1% 28 GM TUBE TP ×2 (19:20)
[2024-11-15 23:50] VITALS: BP 115/66; PULSE 88; RESP 17; TEMP 36.8; O2SAT 99
[2024-11-16] MEDS: Acetaminophen 325 MG TAB 650 MG PO ×2 (04:55→11:54)
[2024-11-16] MEDS: Ibuprofen 600 MG TAB PO ×2 (04:55→11:54)
[2024-11-16 07:30] VITALS: BP 123/79; PULSE 85; TEMP 36.8
--- NOTE | 2024-11-16 11:14 | W.PM.OBDISCH ---
Date of service: 11/16/24 Time of Service: 11:14 DS: Diagnosis Discharge Diagnosis (1) Term of female : Status: Acute Asessment and Plan: A: PPD#2, nml recovery off to a good start P: F/up at 2 & 6 wks with induction machine setter Written instructions reviewed and given to pt Discharge Plan Disposition Patient Disposition: Home Condition: Good Discharge Details Reason For Visit: NST Admit Date/Time: 11/14/24 00:35 Admit Provider: [place] Campuzano Attending Provider: [place] Campuzano Primary Care Provider: Tushar Messina Hospital Course Hospital Course: Admitted in early labor and and treated expectantly through the [facility], epidural anesthesia chosen the next morning, on HD#2, nml recovery, discharge to home on PPD#2 Home Meds and New Rx's Prescriptions: No Action PNV,calcium [id number] acid 27 mg iron- 1 mg tablet 1 tab PO DAILY Qty: 90 3RF Rx Instructions: give with food (meal/snack) Discharge Instructions Additional Instructions: Please keep 2 and 6 wk apptointments with the induction machine setter, call for any and all concerns. Stand Alone Forms: BC Instructions, BC Post Vaginal Deliver Activity:: Activity as Tolerated Equipment/Supplies:: No Equipment Needed Diet:: Normal Diet Discharge Orders Discharge Orders: Discharge Order (Routine); Ordered 11/16/24 Ordered By: [place] Campuzano OB:DS Summary Summary Vaginal Delivery Method: Spontaneaous Laceration Description: Perineal Laceration Extension: First Degree Contraception Discussed Contraception Discussed: Yes Contraceptive Plan: Not planning to use and Foam/Condoms, [place] Gender-Baby A: Female weight: 7 lb 12.517 oz Status at Discharge Functional status at discharge: independent ambulation Overall status at discharge: patient is progressing back to baseline Mental Status: mental status grossly normal Speech and Movement: speech and movement normal and speech clear Mood: congruent mood Affect: normal affect Quality:SDOH Health Related Social Needs: No Data to Display Exam Physical Exam Vital signs: Temp Pulse Resp BP Pulse Ox 98.2 F 85 17 123/79 99 11/16/24 07:30 11/16/24 07:30 11/15/24 23:50 11/16/24 07:30 11/15/24 23:50 Constitutional Constitutional: no acute distress HEENT Exam HEENT Exam: Normal Neck Exam Neck Exam: Normal Breast Exam Bilateral: Breast Exam: Normal and Soft Nipple Exam: Normal and Uninjured Respiratory Exam Respiratory Exam: Normal Cardiovascular Exam Cardiovascular Exam: Normal Abdominal Exam Abdomen: Other (nontender, soft) Fundal Exam Fundus: Below Umbilicus and Firm Rectal Exam Rectal Exam: Normal Exam Perineum: Repair Intact Extremities Exam Extremity Exam: Normal, Edema (+1), Full ROM and Warm to Touch Back/Spine/Pelvis Exam Back Exam: Normal Skin Exam Skin Exam: Normal Neurological Exam Neurological Exam: Normal Psychiatric Exam Psychiatric Exam: Normal PFSH All Active Problems (Updated 11/15/24 @ 15:20 by Cheyenne Scott CNM) Term of female (Acute) Back pain (Acute) Frequent urinary tract infections (Acute) Anxiety (Chronic) Insomnia (Acute) Medical History (Updated 11/15/24 @ 15:20 by Cheyenne Scott CNM) of unknown anatomic location Hypomagnesemia Menstrual periods irregular GERD (gastroesophageal reflux disease) H. pylori infection Abdominal pain GI consult: pending upper and lower GI series. trial of cyproheptadine Family history of multiple endocrine neoplasia (MEN) syndrome (08/09/16) Pain of left calf Lower abdominal pain Cellulitis of left upper extremity History of seizure as Family History Mother Mental disorder bipolar Depression suicide attempts Depression Father Essential hypertension Ulcer Multiple endocrine neoplasia (MEN) syndrome Diabetes Adopted Brother Hypertension Grandparent Heart disease Mgm and Mgf with heart problems Neoplasm Other Substance abuse Social History Smoking/Tobacco Use Status: Current-Occasional Tobacco Type: e-cigarettes Smokeless tobacco user: other (vape) Quit status: has quit before Second Hand Exposure: No Counseling given: provider counseling Smoking risk assessment performed?: Yes Alcohol Intake: current Alcohol Intake frequency: holidays/special occasions only Alcohol type: beer Counseling given: Yes Counseling provided: provider counseling Drug use: Never Substance use type: does not use Adopted: No Caregiver/Support person: No Household members: none Housing: apartment Number of Children: 0 number of grandchildren: 0 Communication Needs: None Education Level: high school Do you need help understanding health information?: Rarely Pets and animals: Yes Pets and animals: cat(s) Sexually active: Yes Do you think of yourself as: straight/heterosexual Current gender identity: female How often do you talk on the phone with friends or family?: three or more times per week How often do you get together with friends or relatives?: three or more times per week How often do you attend denominational or lutheran services?: decline to answer Do you belong to any clubs or organized social groups?: no Panel score (0-1 are the most socially isolated patients): 1 NHANES result reviewed/action taken: Yes What type of physical activity do you participate in: walking Duration: 45-60 minutes/day Frequency: 3-4 times per week Special alma rosa needs: No Seatbelt use: always Helmet use: No Drive intox or ride w/intox cdl truck driver: No Firearms in home: No Do you feel safe at home: Yes Do you feel safe in your relationship?: Yes Female Reproductive History Menstrual control method: none, pills and condoms History History 1 Para 0 Hx # Term Pregnancies 0 Multiple births 0 Hx # Pregnancies 0 Ectopic pregnancies 0 AB induced 0 Hx Number of Living Children 0 AB spontaneous 0 DS: Data Vitals/I&O Vitals and I&O: Vital Signs Temperature 98.2 F 11/16/24 07:30 Temperature 97.7 F 11/14/24 07:47 Temperature Source Oral 11/16/24 07:30 Pulse 85 11/16/24 07:30 Pulse 82 11/14/24 07:47 Pulse Rhythm Regular 11/16/24 07:30 Respiratory Rate 17 11/15/24 23:50 Respiratory Depth Normal 11/15/24 19:10 Blood Pressure 123/79 11/16/24 07:30 Blood Pressure 115/61 11/14/24 07:47 Blood Pressure Mean 93 11/16/24 07:30 Pulse Oximetry 99 11/15/24 23:50 Oxygen Delivery Method Room Air 11/14/24 01:29 Oxygen Flow Rate 0 11/14/24 01:29 Pain Level 0 11/14/24 09:47 Intake & Output 11/15/24 11/15/24 11/16/24 11:59 23:59 11:59 Intake Total 1498.933 / 1498.933 Output Total 1100 / 1100 Balance -1100 / 632.376 6667.933 / 398.933 Intake: IV 1498.933 / 1498.933 Output: Urine 1100 / 1100 Other: Urine Color Yellow Yellow
[2024-11-16 12:00] VITALS: BP 123/76; PULSE 86; TEMP 37
== END 2024-11-16 12:08 | disposition home or self-care (01) | DRG 807 ==
LOC: OBS 00:56
PROVIDERS: Admitting Provider Advanced Practice Midwife; PCP Nurse Practitioner Family; Visit Provider Advanced Practice Midwife
DX: O99.334 Smoking (tobacco) complicating childbirth (principal); Z37.0 Single live birth; Z3A.40 40 weeks gestation of pregnancy; O99.62 Diseases of the digestive system complicating childbirth; O99.344 Other mental disorders complicating childbirth; O70.0 First degree perineal laceration during delivery; G47.00 Insomnia, unspecified; M54.9 Dorsalgia, unspecified; F41.9 Anxiety disorder, unspecified; R30.0 Dysuria; K21.9 Gastro-esophageal reflux disease without esophagitis; E83.42 Hypomagnesemia; F17.290 Nicotine dependence, other tobacco product, uncomplicated
CPT/HCPCS: 59025; 36415; 85027; 86850; 86900; 86901; G0378

== ENCOUNTER 2024-12-16 02:01 | Outpatient (CLI) | payer MEDICAID, SELFPAY ==
--- NOTE | 2024-12-16 07:45 | DI.US_ITS ---
Exam(s) US SOFT TISSUE EXTREMITY EXAM: US SOFT TISSUE EXTREMITY CLINICAL HISTORY: evaluate pathology,MASS LT WRIST,R22.32. TECHNIQUE: Ultrasound was performed using standard protocol. COMPARISON: CR,XR XR HAND LT COMPLETE from 02/18/2023 FINDINGS: Sonographic assessment utilizing grayscale and color Doppler imaging was performed and targeted to the area of clinical concern. The palpable abnormality corresponds to a 2 millimeter circumscribed lesion just superficial to the tendons at the radial aspect of wrist. No fluid is seen within the tendon sheath. The tendons do appear enlarged. IMPRESSION: 2 millimeter circumscribed collection superficial to the tendons at the radial aspect of the wrist may represent a small ganglion cyst. DATA REPOSITORY:
== END 2024-12-16 02:21 ==
LOC: DI 02:02
PROVIDERS: PCP Nurse Practitioner Family; Visit Provider Nurse Practitioner Family
DX: R22.32 Localized swelling, mass and lump, left upper limb (principal)
CPT/HCPCS: 76881

== ENCOUNTER 2024-12-29 12:30 | Outpatient (REF) | payer MEDICAID, SELFPAY ==
--- NOTE | 2024-12-29 16:00 | PAPFT_PTH ---
PATIENT: Caridad Jaquez LOC: [facility] U#:[id number] AGE/SX: 19/F ROOM: RE12/29/[address]: Cheyenne Scott : 2005 BED: DIS: 12/29/2024 SPEC #: [id number] RECD: 12/30/24 15:01 STATUS: BRAD REQ #: [id number] SUZIE: 12/29/24 16:[address]: Cheyenne Scott DEPT: [facility] Cytology RECD BY: Sandra Craig ENTERED: 12/30/24 15:02 SP TYPE: PAPFT OTHR DR: Tushar Grier DNP Tissues: 1 - CX/ENDOCX FOR PAP SMEARS Procedures: PAP THIN PREP/[facility] Screening Comments: [id number]
== END 2024-12-29 12:31 | disposition home or self-care (01) ==
LOC: LBN 12:30
PROVIDERS: PCP Nurse Practitioner Family; Visit Provider Advanced Practice Midwife
DX: Z12.4 Encounter for screening for malignant neoplasm of cervix (principal)
CPT/HCPCS: 88142

== ENCOUNTER 2025-01-25 15:50 | Emergency (ER) | payer MEDICAID, SELFPAY ==
[2025-01-25 15:56] VITALS: BP 116/77; PULSE 96; RESP 18; TEMP 36.7; O2SAT 98
[2025-01-25 15:59] VITALS: BP 116/77; PULSE 96; RESP 18; TEMP 36.7; O2SAT 98
[2025-01-25] MEDS: Ibuprofen 800 MG TAB PO (16:28)
--- NOTE | 2025-01-25 16:28 | ED.GENADUL_ITS ---
Discharge Plan Disposition Patient Disposition: Home Condition: Stable Discharge Details Clinical Impression: Abdominal pain, Vaginal bleeding Primary Care Provider: Tushar Messina ED Provider: Keshia Foley Home Meds and New Rx's Prescriptions: No Action PNV,calcium 80-eaga-gjbfi acid 27 mg iron- 1 mg tablet 1 tab PO DAILY Qty: 90 3RF Rx Instructions: give with food (meal/snack) Discharge Instructions Instructions: Abdominal Pain, Adult ED, Heavy Periods ED Additional Instructions: Please continue over the counter Ibuprofen up to 800 mg every 8 hours as needed for pain relief. Follow-up with your primary care doctor in the meantime if you do get worse or develop any new or concerning symptoms, please return to the Emergency Department for re-evaluation. HPI General Date/Time Provider Initiated Documentation: 01/25/25 15:59 . HPI Narrative: The patient is a 19-year-old female with a history of ovarian cyst who is 3 months post with uncomplicated normal spotnaneous vaginal delivery and normal who comes to the Emergency Department for vaginal bleeding and abdominal pain. The patient reports that this is the first time she has had significant bleeding since her post bleeding. Reports last night she had sexual intercourse with her fiance and this was their normal routine intercourse. Reports that she uses condoms for control. Reports her abdomen was not hurting yesterday at all reports when she woke up this morning she had discomfort on the left side of the abdomen and had blood in her underwear. Reports she took Tylenol which helped but it wore off and last took this again between 3:30 or 4:00 this afternoon which has helped again. Reports that she is only having vaginal spotting now. Reports she does not breast feed. Denies urinary symptoms. Reports her abdominal pain feels similar to prior ovarian cyst pain. Denies nausea or vomiting. Denies fever or chills. Denies chest pain or shortness of breath. Related Data Home Medications ?Medication ?Instructions ?Recorded ?Confirmed vitamins with calcium 1 tab PO DAILY #90 tabs 03/03/24 01/25/25 no.72-iron 27 mg-folic acid 1 mg tablet Previous Rx's ?Medication ?Instructions ?Recorded vitamins with calcium 1 tab PO DAILY #90 tabs 03/03/24 no.72-iron 27 mg-folic acid 1 mg tablet Allergies Allergy/AdvReac Type Severity Reaction Status Date / Time tree and shrub pollen Allergy Intermediate Other (See Verified 01/25/25 15:58 Comment) aloe Allergy Unknown Skin Rash Verified 01/25/25 15:58 codeine AdvReac Intermediate Agitation Verified 01/25/25 15:58 General Stated Complaint: Abd Prob LAN: 3 Review of Systems Narrative: Review of systems are negative except as mentioned. Exam Narrative Exam Narrative: General appearance: The patient is alert, has no immediate need for airway protection and no signs of toxicity. Respiratory: There are no retractions. Lungs are clear to auscultation. Cardiovascular: Regular in rate and rhythm. Radial pulses are intact and equal. Gastrointestinal: The abdomen is soft and nondistended with normal bowel sounds. She has suprapubic and left lower quadrant tenderness to palpation without rebound tenderness, guarding or rigidity. Neurological: The patient is alert, awake and oriented x 3. Skin: Warm and dry. Back: No CVA tenderness is noted to palpation bilaterally. Extremities: No lower extremity edema. Course Vital Signs Vital signs: Vital Signs Temperature 36.7 C 01/25/25 15:56 Pulse 96 H 01/25/25 15:56 Respiratory Rate 18 01/25/25 15:56 Blood Pressure 116/77 01/25/25 15:56 Pulse Oximetry 98 01/25/25 15:56 Temperature 36.7 C 01/25/25 15:59 Pulse 96 H 01/25/25 15:59 Respiratory Rate 18 01/25/25 15:59 Blood Pressure 116/77 01/25/25 15:59 Pulse Oximetry 98 01/25/25 15:59 Medical Decision Making I told the patient that ovarian cysts are typically diagnosed with ultrasound which is not available this afternoon. I spoke with her about the possibility of getting this done at a different hospital but she was not interested in this tonight. We spoke about blood work and possibly CT scan to look for other etiologies and after shared medical decision making, the patient declined. She does agree with urinalysis and urine test and agreed to Ibuprofen for pain in the meantime. Her urine test was negative. Her urinalysis is negative for i nfectious process. I have updated the patient of work-up result so far. In the meantime, she reports that she feels so much better. I told her of plan for discharge at this point. She is encouraged to continue Ibuprofen and to follow-up with her PCP as well but in the meantime return to the Emergency Department with any worsening symptoms or any other concerns. PFSH All Active Problems (Updated 01/25/25 @ 17:08 by Keshia Foley DO) Vaginal bleeding (Acute) Abdominal pain (Acute) care and examination (Acute) Breast engorgement, obstetric, delivered (Acute) Back pain (Acute) Anxiety (Chronic) Insomnia (Acute) Medical History (Updated 01/25/25 @ 17:08 by Keshia Foley DO) Frequent urinary tract infections Hypomagnesemia Menstrual periods irregular GERD (gastroesophageal reflux disease) H. pylori infection Abdominal pain GI consult: pending upper and lower GI series. trial of cyproheptadine Family history of multiple endocrine neoplasia (MEN) syndrome (08/09/16) Pain of left calf Lower abdominal pain Cellulitis of left upper extremity History of seizure as Family History Mother Mental disorder bipolar Depression suicide attempts Depression Father Essential hypertension Ulcer Multiple endocrine neoplasia (MEN) syndrome Diabetes Adopted Brother Hypertension Grandparent Heart disease Mgm and Mgf with heart problems Neoplasm Other Substance abuse Social History Smoking/Tobacco Use Status: Never Smokeless tobacco user: other (vape) Second Hand Exposure: No Counseling given: provider counseling Smoking risk assessment performed?: Yes Alcohol Intake: current Alcohol Intake frequency: holidays/special occasions only Alcohol type: beer Counseling given: Yes Counseling provided: provider counseling Drug use: Never Substance use type: does not use Adopted: No Caregiver/Support person: No Household members: none Housing: apartment Number of Children: 0 number of grandchildren: 0 Communication Needs: None Education Level: high school Do you need help understanding health information?: Rarely Pets and animals: Yes Pets and animals: cat(s) Sexually active: Yes Do you think of yourself as: straight/heterosexual Current gender identity: female How often do you talk on the phone with friends or family?: three or more times per week How often do you get together with friends or relatives?: three or more times per week How often do you attend jewish or hindu services?: decline to answer Do you belong to any clubs or organized social groups?: no Panel score (0-1 are the most socially isolated patients): 1 NHANES result reviewed/action taken: Yes What type of physical activity do you participate in: walking Duration: 45-60 minutes/day Frequency: 3-4 times per week Special alma rosa needs: No Seatbelt use: always Helmet use: No Drive intox or ride w/intox freight delivery driver: No Firearms in home: No Do you feel safe at home: Yes Do you feel safe in your relationship?: Yes Female Reproductive History Menstrual control method: none, pills and condoms History History 1 Para 1 Hx # Term Pregnancies 1 Multiple births 0 Hx # Pregnancies 0 Ectopic pregnancies 0 AB induced 0 Hx Number of Living Children 1 AB spontaneous 0 Past Pregnancies Del. Date GA/Weeks # Preg Succ Route Wgt Sex Labor Lgth Anesth esia Location [facility] 11/14/24 40 No Yes vaginal Female Shaquille odell CNM Delivery Date: 11/14/24 Last Updated by: RAMIREZ Flores
[2025-01-25 16:42] LABS: Glucose Negative (Negative)
[2025-01-25 16:54] LABS: C & S Indicated? No; RBC >50 HPF (0-2); WBC 0-2 HPF (0-5)
[2025-01-25 17:17] VITALS: BP 96/56; PULSE 86; RESP 16; TEMP 36.6; O2SAT 97
== END 2025-01-25 17:21 | disposition home or self-care (01) ==
PROVIDERS: Emergency Provider Emergency Medicine; PCP Nurse Practitioner Family
DX: R10.32 Left lower quadrant pain (principal); N93.9 Abnormal uterine and vaginal bleeding, unspecified
CPT/HCPCS: 99283 ×2; 81025; 81003; 81015